=== PATIENT | female | born 1965 | race Caucasian/White ===

== ENCOUNTER 2017-01-27 17:42 | Inpatient (IN) | payer OTHER ==
[~2017-01-27] VITALS: Ht 160 cm; Wt 65.8 kg
[~2017-01-27 17:42] MED LIST: BACTRIM DS 8001 TAB PO; DIFLUCAN150 MG PO; KEFLEX500 MG PO; TRIAMCINOL0.1 %/453 TOP; VIVELLE-DO0.075 MG/2 TD
--- NOTE | 2017-01-27 18:31 | ED GI/GU/ABDOMINAL COMPLAINT ---
History of Present Illness General Chief Complaint: Abdominal Pain/Flank Pain Stated Complaint: L SIDE/ABD PAIN Source: patient Exam Limitations: no limitations Vital Signs & Intake/Output Vital Signs & Intake/Output Vital Signs Date Time Temp Pulse Resp B/P Pulse O2 O2 Flow FiO2 Ox Delivery Rate 02/03 0657 98.8 100 20 140/84 95 Room Air 02/02 2257 98.3 102 20 140/90 97 02/02 1437 97.8 101 20 140/80 96 ED Intake and Output 02/03 0000 02/02 1200 Intake Total 1200 600 Output Total 1025 10 Balance 175 590 Intake, IV 600 600 Intake, Oral 600 Number 0 Bowel Movements Output, 25 10 Drainage Output, Urine 1000 Allergies Coded Allergies: procaine (From NOVOCAIN) (Severe, RAPID HEART RATE 01/27/17) Penicillins (Intermediate, HIVES 01/27/17) bee venom protein (honey bee) (Intermediate, WELTS 01/27/17) codeine (Intermediate, N/V 01/27/17) latex (Intermediate, HIVES 01/27/17) oxycodone (From PERCOCET) (Intermediate, N/V 01/27/17) Triage Note: TRIAGE: PT TO ER C/C L SIDE ABD PAIN, ONSET 03:00, CONSTANT SINCE ONSET, WORSE WITH MOVEMENT OR DEEPER BREATHS. TOOK ALEVE THIS MORNING WITH SLIGHT RELIEF IN PAIN AND GOOD RELIEF OF FEVER. STATES TEMP WAS 103 AT HOME. AFEBRILE AT TRIAGE. HR 130, EKG ORDERED FROM TRIAGE. Triage Nurses Notes Reviewed? yes HPI: Patient is a 51 year old female presents complaining of severe left sided abdominal pain onset yesterday evening. Pain is a sharp pain currently severe, worsens with movement and palpation and lying flat. Fever of 103 at home tympanically overnight, took 2 Aleve with mild improvement of fevers, no improvement of pain. Positive nausea, no vomiting. Last bowel movement was this morning, small and hard. Associated bloating. (RAN VELEZ,CEM) Reconcile Medications Biotin 5,000 MCG TAB.RAPDIS 1 TAB PO DAILY SUPPLEMENT (Reported) Caffeine 200 MG TABLET 1 TAB PO DAILY SUPPLEMENT (Reported) Calcium (Elemental-Fr Calcarb) (Tums Ultra) (Unknown Strength) TAB.CHEW 2 TAB PO DAILY SUPPLEMENT (Reported) Calcium/Magnesium/Zinc (Pjzdrmk-Cissutxbv-Erpu Tab) 1 EACH TABLET 1 TAB PO DAILY SUPPLEMENT (Reported) Estradiol (Vivelle-Dot) 0.075 MG/24 HOUR PATCH.TDSW 1 PATCH TOP 2XW HRT ( Reported) KELP 1 EACH TABLET 1 TAB PO DAILY SUPPLEMENT (Reported) Krill Oil (Unknown Strength) CAPSULE (Unknown Dose) PO DAILY SUPPLEMENT ( Reported) Lactobacillus Acidophilus (Probiotic) 10 BILLION CELL CAPSULE 1 CAP PO DAILY PROBIOTIC (Reported) Loratadine/Pseudoephedrine (Claritin-D 24 Hour Tablet) 10 MG-240 MG TAB.ER.24H 1 TAB PO DAILY ALLERGIES (Reported) Lutein 40 MG CAPSULE 1 CAP PO DAILY SUPPLEMENT (Reported) Magnesium Oxide (Magnesium) 500 MG CAPSULE 1 CAP PO DAILY SUPPLEMENT ( Reported) Multivitamin (Multi-Day Vitamins) 1 EACH TABLET 2 TAB PO DAILY SUPPLEMENT ( Reported) Omeprazole 40 MG CAPSULE. 1 CAP PO DAILY GI (Reported) ? N Is pt currently ? No (MARY COFFMAN PA-C) Past History Travel History Traveled to [place] past 21 day No Medical History Any Pertinent Medical History? see below for history Neurological: NONE EENT: NONE Cardiovascular: NONE Respiratory: NONE Gastrointestinal: NONE Hepatic: NONE Renal: NONE Musculoskeletal: NONE Psychiatric: NONE Endocrine: LUPUS Blood Disorders: NONE Cancer(s): NONE OBGYN NURSE/Reproductive: UTERINE FIBROIDS Surgical History Surgical History: appendectomy, hysterectomy (total), 2 open myomectomies, 2 c- sections, 8 laparoscopic fibroid removal, lap band Psychosocial History Who do you live with Spouse What is your primary language Taiwanese Tobacco Use: Never used ETOH Use: occasional use Illicit Drug Use: denies illicit drug use Family History Hx Contributory? No (CEM MOTA) Review of Systems Review of Systems Constitutional: Reports: see HPI. EENTM: Reports: no symptoms. Respiratory: Reports: no symptoms. Cardiovascular: Reports: no symptoms. GI: Reports: see HPI. Genitourinary: Reports: no symptoms. Musculoskeletal: Reports: no symptoms. Skin: Reports: no symptoms. Neurological/Psychological: Reports: no symptoms. All Other Systems: Reviewed and Negative (MARY COFFMAN PA-C) Physical Exam Physical Exam General Appearance: alert, awake, severe distress Head: atraumatic, normal appearance Eyes: Bilateral: normal appearance, PERRL, EOMI. Ears, Nose, Throat, Mouth: hearing grossly normal, moist mucous membrane Neck: normal inspection, supple, full range of motion Respiratory: normal breath sounds, chest non-tender, no respiratory distress, lungs clear Cardiovascular: regular rate/rhythm Gastrointestinal: soft, guarding (left mid abdomen), tenderness to palpation in the left upper quadrant with no rebound or guarding. No McBurney's point tenderness. Negative Alexander sign. No masses or hernias appreciated. Nondistended Back: normal inspection, normal range of motion Extremities: normal range of motion Neurologic/Psych: no motor/sensory deficits, awake, alert, oriented x 3, normal gait, normal mood/affect Skin: intact, normal color, warm/dry (RAN VELEZ,CEM) Physical Exam Gastrointestinal: normal bowel sounds, soft, no organomegaly, tenderness to palpation in the left upper quadrant with no rebound or guarding. No McBurney's point tenderness. Negative Alexander sign. No masses or hernias appreciated. Nondistended Comments: Well-developed well-nourished person in no acute distress HEENT: Normal EENT exam, head normocephalic, moist mucous membranes Pupils equally round and reactive to light. Pharynx normal. No swelling or edema. Neck: Supple. Full range of motion Back: Normal inspection Cardiovascular: Regular rate and rhythm with no murmurs, rubs, or gallops Respiratory: Chest nontender. No respiratory distress. Breath sounds clear to auscultation bilaterally Abdomen: Soft, nontender nondistended, no appreciable organomegaly. Normal bowel sounds. No ascites Extremity: Normal and equal pulses Neuro: Alert oriented x3, motor sensory normal, cranial nerves II through XII grossly intact. Skin: No appreciable rash on exposed skin, skin is warm and dry. Psych: Mood and affect is normal, memory and judgment is normal. Core Measures ACS in differential dx? Yes Severe Sepsis Present: No Septic Shock Present: No (MEGHNA BRANDON,MARY) Progress Plan of Care: Orders Procedure Date/time Status Bariatric Diet - Stage 2 02/03 L Active PHOSPHORUS 02/03 0600 Active MAGNESIUM 02/03 0600 Active CBC WITHOUT DIFFERENTIAL 02/03 0600 Active BASIC ELECTROLYTES PLUS BUN&CR 02/03 0600 Active Bariatric Diet - Stage 1 02/02 L Complete Device(s) 02/02 0820 Active Diet Message 02/02 UNK Active Current Medications Sig/Melissa Start time Last Medication Dose Stop Time Status Admin Non-Formulary 0 SEE ADMIN CRITERIA 02/02 1900 CAN Medication (NON FORMULARY) Hydromorphone HCl 2 MG Q4P PRN 02/02 1145 AC (Dilaudid) Magnesium Hydroxide 30 ML DAILY NEEDED PRN 02/02 0800 AC (Milk Of Magnesia) Acetaminophen 1,000 MG Q6P PRN 01/31 1600 AC (Ofirmev) Hydromorphone HCl 0.6 MG Q4P PRN 01/31 1600 AC (Dilaudid) Promethazine HCl 12.5 MG Q6P PRN 01/31 1600 AC (Phenergen) 02/03 2344 Laboratory Tests 02/03/17 0645: Sodium Pending, Potassium Pending, Chloride Pending, Carbon Dioxide Pending, Anion Gap Pending, BUN Pending, Creatinine Pending, BUN/Creatinine Ratio Pending , Phosphorus Pending, Magnesium Pending, CBC w Diff Pending, WBC Pending, RBC Pending, Hgb Pending, Hct Pending, MCV Pending, MCH Pending, RDW Pending, Plt Count Pending, MPV Pending, PUBS MCHC Pending 02/02/17 0812: Anion Gap 7, Estimated GFR > 60, BUN/Creatinine Ratio 10.0, Magnesium 1.7 Patient reports mild to moderate improvement of pain after 0.5mg of Dilaudid. Signed out to Mary Coffman PA-C with CT scan pending. (RAN VELEZ,CEM) Initial ED EKG: none (CEM MOTA) Differential Diagnosis: AAA, AMI, appendicitis, biliary colic, bowel obstruction , colon cancer, cholecystitis, diverticulitis, gastritis, hepatitis, hernia, ischemic bowel, inflamm bowel dis, kidney stone, pancreatitis, PID/cervicitis, PUD/GERD, perforated viscous, UTI/pyelo Diagnostic Imaging: Viewed by Me: CT Scan. Discussed w/RAD: CT Scan. Radiology Impression: PATIENT: ALEXYS BORJAS PRESENT AGE: 51 PATIENT ACCOUNT NO: [id number] : 65 LOCATION: [facility] ORDERING PHYSICIAN: CEM VELEZ SERVICE DATE: 01/27/17 EXAM TYPE: CAT - CT ABD & PELVIS W IV CONTRAST EXAMINATION: CT ABDOMEN AND PELVIS WITH CONTRAST CLINICAL INFORMATION: Rule out infection, obstruction, or splenic infarct. Severe left-sided abdominal pain and guarding. COMPARISON: None TECHNIQUE: Multidetector volumetric imaging was performed of the abdomen and pelvis before and after the IV administration of 95 mL of Optiray 350 intravenous contrast. Sagittal and coronal reformatted images were obtained on the technologist's workstation. DLP: 336.07 mGy-cm FINDINGS: There is mild distention of the lower esophagus which has retained fluid. There is questionable mild circumferential wall thickening as well. A lap band is in place. There is abnormal mesenteric inflammatory change around the course of the connecting tubing for the lap band in the left upper quadrant adjacent to the greater curvature of the stomach. No free air or drainable fluid collection is seen. Inflammatory changes extend to the inferior tip of the spleen around the catheter. The stomach is decompressed. The spleen is homogeneous in attenuation. There is mild fatty infiltration adjacent to the falciform ligament in the liver. The liver is otherwise fairly homogeneous in density. There is no biliary ductal dilatation. The gallbladder is normal. The main portal vein opacifies normally but is somewhat prominent, measuring 1.6 cm in diameter. The abdominal aorta is normal in caliber. The osseous structures appear normal with disc space narrowing at L5-S1. The kidneys demonstrate symmetric nephrograms without hydronephrosis. The pancreas and adrenal glands appear normal. There is no retroperitoneal adenopathy. There are no findings of a bowel obstruction. No large bowel wall thickening or diverticular disease is seen. The uterus is collapsed and retroverted. The bladder is incompletely distended with questionable mild wall thickening. IMPRESSION: Moderate inflammatory changes around the connecting tube of the lap band in the left upper quadrant of the abdomen around the greater curvature of the stomach and through the gastrohepatic space which may reflect phlegmon. No drainable fluid collection or abscess. No free air. Questionable mild bladder wall thickening versus incomplete distention; clinically correlate. DICTATED BY: ROBSON JEFFERS MD DATE/TIME DICTATED:01/27/172035 MANAGER FACILITY:[facility] DATE/TIME TRANSCRIBED:01/27/172035 CONFIDENTIAL, DO NOT COPY WITHOUT APPROPRIATE AUTHORIZATION. <Electronically signed in Other Vendor System> SIGNED BY: ROBSON JEFFERS MD 01/27/172049 Hand-Off Endorsed To: MARY COFFMAN PA-C Endorsed Time: 1999 Pending: CT Comments: 01/27/2017 10:15:19 PM: I spoke to Dr. Mead with [place] [facility]. He did in turn speak with Dr. Alexandr Alberto who is suggesting that we speak to the surgical PA to come down for [id number] evaluation. 01/27/2017 10:49:01 PM: Surgical PA was at the patient's bedside for face to face evaluation. (MARY OCFFMAN PA-C) Departure Departure Referrals: GINGER KENYON,JAZMIN Joshua (PCP/Family) Departure Forms: Customer Survey General Discharge Information (CEM MOTA) Departure Disposition: STILL A PATIENT Condition: Stable Clinical Impression Primary Impression: Gastric band erosion Qualifiers: Encounter type: initial encounter Qualified Code: T85.598A - Other mechanical complication of other gastrointestinal prosthetic devices, implants and grafts, initial encounter Admission Note Spoke With: ALEXANDR LAMB MD Documentation of Exam: Documentation of any treatments & extenuating circumstances including Concerns Regarding Discharge (functional status, medication knowledge or non-compliance, living conditions, etc.) that warrant an admission rather than observation: [ This patient is a 51-year-old female who presented to the emergency department today for evaluation of left upper quadrant pain. Possible erosion of previously flat pain. This patient will need further observation and management the emergency department. Transient labs and Repeat CT scan.] OR/GI Note Spoke With: ALEXANDR LAMB MD Transport To: [facility] (MARY COFFMAN PA-C) PA/CONCRETE PUMP OPERATOR HELPER Co-Sign Statement Statement: ED Attending supervision documentation- [] I saw and evaluated the patient. I have also reviewed all the pertinent lab results and diagnostic results. I agree with the findings and the plan of care as documented in the PA's/CONCRETE PUMP OPERATOR HELPER's documentation. [X] I have reviewed the ED Record and agree with the PA's/CONCRETE PUMP OPERATOR HELPER's documentation. [] Additions or exceptions (if any) to the PAs/CONCRETE PUMP OPERATOR HELPER's note and plan are summarized below: [] (ARNOLD KENYON,ROBSON Medina)
[2017-01-27] MEDS ORDERED: VIVELLE-DOT1 EAC4 TOP (18:47)
[2017-01-27] MEDS ORDERED: MULTI-DAY VITA1 EACH PO (18:47)
[2017-01-27] MEDS ORDERED: TUMS ULTRA400 M1 PO (18:48)
[2017-01-27] MEDS ORDERED: KRILL OIL500 MG PO (18:49)
[2017-01-27] MEDS ORDERED: CALCIUM-MAGNES1 EAC5 PO (18:49)
[2017-01-27] MEDS ORDERED: PROBIOTIC1 EACH PO (18:50)
[2017-01-27] MEDS ORDERED: MAGNESIUM500 M2 PO (18:50)
[2017-01-27] MEDS ORDERED: CAFFEINE200 MG PO (18:50)
[2017-01-27] MEDS ORDERED: LUTEIN40 MG PO (18:51)
[2017-01-27] MEDS ORDERED: KELP1 EACH PO (18:51)
[2017-01-27] MEDS ORDERED: BIOTIN5000 MCG PO (18:51)
[2017-01-27] MEDS ORDERED: CLARITIN-D 241 EACH PO (18:52)
[2017-01-27] MEDS ORDERED: OMEPRAZOLE40 M1 PO (18:52)
[2017-01-27 19:02] LABS: ABSOLUTE BASOPHIL COUNT 0 /CUMM (0.0-0.2); ABSOLUTE EOSINOPHIL COUNT 0.1 /CUMM (0.0-0.7); ABSOLUTE GRANULOCYTE CT 8.8 /CUMM (1.4-6.5); ABSOLUTE LYMPH COUNT 1.4 /CUMM (1.2-3.4); ABSOLUTE MONOCYTE COUNT 0.7 /CUMM (0.10-0.60); BASOPHIL % 0.4 % (0.0-2.0); EOSINOPHIL % 0.9 % (0-5); GRANULOCYTE % 79.3 % (42.2-75.2); HEMATOCRIT 36.8 % (37-47); MEAN CORPUSCULAR HGB 26.9 PG (27.0-31.0); MEAN CORPUSCULAR HGB CONC 32.6 G/DL (33.0-37.0); MEAN CORPUSCULAR VOLUME 82.5 FL (81.0-99.0); PLATELET COUNT 243 /CUMM (130-400); RBC DISTRIBUTION WIDTH 14.5 % (11.5-14.5); RED BLOOD CELL CT 4.46 /CUMM (4.20-5.40); WHITE BLOOD CELL COUNT 11.1 /CUMM (4.8-10.8)
--- NOTE | 2017-01-27 20:50 | CT SCAN REPORT ---
EXAMINATION: CT ABDOMEN AND PELVIS WITH CONTRAST CLINICAL INFORMATION: Rule out infection, obstruction, or splenic infarct. Severe left-sided abdominal pain and guarding. COMPARISON: None TECHNIQUE: Multidetector volumetric imaging was performed of the abdomen and pelvis before and after the IV administration of 95 mL of Optiray 350 intravenous contrast. Sagittal and coronal reformatted images were obtained on the technologist's workstation. DLP: 336.07 mGy-cm FINDINGS: There is mild distention of the lower esophagus which has retained fluid. There is questionable mild circumferential wall thickening as well. A lap band is in place. There is abnormal mesenteric inflammatory change around the course of the connecting tubing for the lap band in the left upper quadrant adjacent to the greater curvature of the stomach. No free air or drainable fluid collection is seen. Inflammatory changes extend to the inferior tip of the spleen around the catheter. The stomach is decompressed. The spleen is homogeneous in attenuation. There is mild fatty infiltration adjacent to the falciform ligament in the liver. The liver is otherwise fairly homogeneous in density. There is no biliary ductal dilatation. The gallbladder is normal. The main portal vein opacifies normally but is somewhat prominent, measuring 1.6 cm in diameter. The abdominal aorta is normal in caliber. The osseous structures appear normal with disc space narrowing at L5-S1. The kidneys demonstrate symmetric nephrograms without hydronephrosis. The pancreas and adrenal glands appear normal. There is no retroperitoneal adenopathy. There are no findings of a bowel obstruction. No large bowel wall thickening or diverticular disease is seen. The uterus is collapsed and retroverted. The bladder is incompletely distended with questionable mild wall thickening. IMPRESSION: Moderate inflammatory changes around the connecting tube of the lap band in the left upper quadrant of the abdomen around the greater curvature of the stomach and through the gastrohepatic space which may reflect phlegmon. No drainable fluid collection or abscess. No free air. Questionable mild bladder wall thickening versus incomplete distention; clinically correlate.
--- NOTE | 2017-01-27 23:51 | History & Physical ---
General Information and HPI MD Statement: I have seen and personally examined ALEXYS BORJAS and documented this H&P. The patient is a 51 year old F who presented with a patient stated chief complaint of [abdominal pain]. Source of Information: patient Exam Limitations: no limitations History of Present Illness: This is a 51-year-old female who presents the emergency department this afternoon with severe epigastric and left upper quadrant abdominal pain. Pain started at 3 AM this morning, sudden onset associated with chills and fever, she took her temperature and noted to be 103. She took [id number] antipyretics and temperature improved. She has had intermittent but worsening pain throughout the day today associated with nausea and intermittent chills, she presented to the ER for further evaluation. The pain is not radiating, is not going to left lower quadrant or right lower quadrant not into the back. She is not vomiting. She is able to swallow liquids without difficulty. Patient has a history of lap band surgery done [address] Jeyson Richardson. 2 years after this she had complications when the LAP-BAND slipped and Dr. Richardson had to attempt operated again on her, repositioning the LAP-BAND. According to patient is a large amount of scar tissue surrounding the band and she states that Dr. Richardson said at the time that it was very dangerous to remove the LAP- BAND because he was worried about perforation. She has not had any significant trouble since that surgery, she was last seen approximately 2 years ago by Charlie Marie MD and had an endoscopy at that time which was routine and states it was normal. She states that she has very little to no fluid left in the LAP- BAND and has tolerated food normally without difficulty and had no complications until this episode early this morning. Patient does note that over the past week she has been more constipated than usual requiring Ex-Lax zaqg-glw-gvemwej. She has had bowel movements each day for the last 3 days last bowel movement was this morning. She feels her abdominal area is distended. She was noted to be tachycardic here upon arrival to the ER and received IV fluids and IV pain medication which helped her symptoms significantly. Patient had a CT scan and lab tests here in the ER. Surgery was consulted for further management due to findings on CT scan of inflammation and possible phlegmon around the LAP-BAND. Allergies/Medications Allergies: Coded Allergies: procaine (From NOVOCAIN) (Severe, RAPID HEART RATE 01/27/17) Penicillins (Intermediate, HIVES 01/27/17) bee venom protein (honey bee) (Intermediate, WELTS 01/27/17) codeine (Intermediate, N/V 01/27/17) latex (Intermediate, HIVES 01/27/17) oxycodone (From PERCOCET) (Intermediate, N/V 01/27/17) Home Med list Biotin 5,000 MCG TAB.RAPDIS 1 TAB PO DAILY SUPPLEMENT (Reported) Caffeine 200 MG TABLET 1 TAB PO DAILY SUPPLEMENT (Reported) Calcium (Elemental-Fr Calcarb) (Tums Ultra) (Unknown Strength) TAB.CHEW 2 TAB PO DAILY SUPPLEMENT (Reported) Calcium/Magnesium/Zinc (Lpajxnl-Joqdxjzdj-Cjly Tab) 1 EACH TABLET 1 TAB PO DAILY SUPPLEMENT (Reported) Estradiol (Vivelle-Dot) 0.075 MG/24 HOUR PATCH.TDSW 1 PATCH TOP 2XW HRT ( Reported) KELP 1 EACH TABLET 1 TAB PO DAILY SUPPLEMENT (Reported) Krill Oil (Unknown Strength) CAPSULE (Unknown Dose) PO DAILY SUPPLEMENT ( Reported) Lactobacillus Acidophilus (Probiotic) 10 BILLION CELL CAPSULE 1 CAP PO DAILY PROBIOTIC (Reported) Loratadine/Pseudoephedrine (Claritin-D 24 Hour Tablet) 10 MG-240 MG TAB.ER.24H 1 TAB PO DAILY ALLERGIES (Reported) Lutein 40 MG CAPSULE 1 CAP PO DAILY SUPPLEMENT (Reported) Magnesium Oxide (Magnesium) 500 MG CAPSULE 1 CAP PO DAILY SUPPLEMENT ( Reported) Multivitamin (Multi-Day Vitamins) 1 EACH TABLET 2 TAB PO DAILY SUPPLEMENT ( Reported) Omeprazole 40 MG CAPSULE.DR 1 CAP PO DAILY GI (Reported) Compliance With Home Meds: GOOD Past History Travel History Traveled to [place] past 21 day No Medical History Neurological: NONE EENT: NONE Cardiovascular: NONE Respiratory: NONE Gastrointestinal: NONE Hepatic: NONE Renal: NONE Musculoskeletal: NONE Psychiatric: NONE Endocrine: LUPUS Blood Disorders: NONE Cancer(s): NONE 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 EENTM: Reports: no symptoms. Cardiovascular: Reports: no symptoms. Respiratory: Reports: no symptoms. GI: Reports: no symptoms. Musculoskeletal: Reports: no symptoms. Skin: Reports: no symptoms. Neurological/Psychological: Reports: no symptoms. Hematologic/Endocrine: Reports: no symptoms. Immunologic/Allergic: Reports: no symptoms. All Other Systems: Reviewed and Negative Exam & Diagnostic Data Last 24 Hrs of Vital Signs/I&O Vital Signs Date Time Temp Pulse Resp B/P Pulse O2 O2 Flow FiO2 Ox Delivery Rate 01/28 2208 98.7 100 18 125/76 99 01/27 1904 112 126/75 01/27 1750 98.5 130 20 121/89 99 Room Air Physical Exam General Appearance Alert, Oriented X3, No Acute Distress Skin No Rashes, No Breakdown, No Significant Lesion HEENT Atraumatic, PERRLA, EOMI, mildly dry mucous membranes Neck Supple, No JVD, No thryomegaly, +2 Carotid Pulse wo Bruit Lymphatic Cervical nl Cardiovascular Normal S1, Normal S2, borderline tachycardia, no JVD Lungs Clear to Auscultation, Normal Air Movement Abdomen Soft, softly distended diffusely. Moderate to severe tenderness in the epigastric and left upper quadrant. No lower abdominal pain or tenderness. No peritoneal signs. Bowel sounds are decreased Neurological Normal Speech, Sensation Intact Extremities No Clubbing, No Cyanosis, No Edema, Normal Pulses, No Tenderness/ Swelling Vascular Normal Pulses Last 24 Hrs of Labs/Art: Laboratory Tests 01/27/172218: Urine Color YEL, Urine Clarity CLEAR, Urine pH 6.0, Ur Specific [place] <= 1.005 , Urine Protein NEG, Urine Ketones 40 H, Urine Nitrite NEG, Urine Bilirubin NEG , Urine Urobilinogen 0.2, Ur Leukocyte Esterase NEG, Ur Microscopic EXAM NOT REQUIRED, Urine Hemoglobin NEG, Urine Glucose NEG 01/27/17 213: Lactic Acid Cancelled 01/27/17 183: Direct Bilirubin Cancelled 01/27/17 183: Anion Gap 14, Estimated GFR > 60, BUN/Creatinine Ratio 13.8, Glucose 86, Lactic Acid 0.7, Calcium 9.4, Total Bilirubin 0.5, AST 18, ALT 35, Alkaline Phosphatase 104, Total Protein 6.9, Albumin 4.0, Globulin 2.9, Albumin/Globulin Ratio 1.4, Amylase 63, Lipase 36, CBC w Diff NO MAN DIFF REQ, RBC 4.46, MCV 82.5, MCH 26.9 L, RDW 14.5, MPV 9.0, Gran % 79.3 H, Lymphocytes % 13.0 L, Monocytes % 6.4, Eosinophils % 0.9, Basophils % 0.4, Absolute Granulocytes 8.8 H, Absolute Lymphocytes 1.4, Absolute Monocytes 0.7 H, Absolute Eosinophils 0.1, Absolute Basophils 0, PUBS MCHC 32.6 L Microbiology 01/28 1832 BLOOD: Blood Culture - CAN Cancelled: Cancelled via OE: Error 01/28 1832 BLOOD: Blood Culture - CAN Cancelled: Cancelled via OE: Error Diagnostic Data EKG Results Sinus tachycardia, 130 bpm, suboptimal tracing due to artifact, no acute ST or T -wave changes Other Results PATIENT: ALEXYS BORJAS PRESENT AGE: 51 PATIENT ACCOUNT NO: [id number] : 65 LOCATION: [facility] ORDERING PHYSICIAN: CEM VELEZ SERVICE DATE: 01/27/17 EXAM TYPE: CAT - CT ABD & PELVIS W IV CONTRAST EXAMINATION: CT ABDOMEN AND PELVIS WITH CONTRAST CLINICAL INFORMATION: Rule out infection, obstruction, or splenic infarct. Severe left-sided abdominal pain and guarding. COMPARISON: None TECHNIQUE: Multidetector volumetric imaging was performed of the abdomen and pelvis before and after the IV administration of 95 mL of Optiray 350 intravenous contrast. Sagittal and coronal reformatted images were obtained on the technologist's workstation. DLP: 336.07 mGy-cm FINDINGS: There is mild distention of the lower esophagus which has retained fluid. There is questionable mild circumferential wall thickening as well. A lap band is in place. There is abnormal mesenteric inflammatory change around the course of the connecting tubing for the lap band in the left upper quadrant adjacent to the greater curvature of the stomach. No free air or drainable fluid collection is seen. Inflammatory changes extend to the inferior tip of the spleen around the catheter. The stomach is decompressed. The spleen is homogeneous in attenuation. There is mild fatty infiltration adjacent to the falciform ligament in the liver. The liver is otherwise fairly homogeneous in density. There is no biliary ductal dilatation. The gallbladder is normal. The main portal vein opacifies normally but is somewhat prominent, measuring 1.6 cm in diameter. The abdominal aorta is normal in caliber. The osseous structures appear normal with disc space narrowing at L5-S1. The kidneys demonstrate symmetric nephrograms without hydronephrosis. The pancreas and adrenal glands appear normal. There is no retroperitoneal adenopathy. There are no findings of a bowel obstruction. No large bowel wall thickening or diverticular disease is seen. The uterus is collapsed and retroverted. The bladder is incompletely distended with questionable mild wall thickening. IMPRESSION: Moderate inflammatory changes around the connecting tube of the lap band in the left upper quadrant of the abdomen around the greater curvature of the stomach and through the gastrohepatic space which may reflect phlegmon. No drainable fluid collection or abscess. No free air. Questionable mild bladder wall thickening versus incomplete distention; clinically correlate. DICTATED BY: RBOSON JEFFERS MD DATE/TIME DICTATED:01/27/172035 HAND QUILTER:MAGGIE DATE/TIME TRANSCRIBED:01/27/172035 Assessment/Plan Assessment: 51-year-old female 7 years status post lap band placement and 5 years status post lap and revision presents with acute abdominal pain and complications related to her lap band surgery suggestive of erosion and possible microperforation and infection. -Discussed with Dr. Carranza, admitted to general surgery -Nothing by mouth -Pain medication as needed -IV antiemetics as needed -IV fluids -DVT prophylaxis with Alps, heparin subcutaneous and ad onesimo activity -Unasyn 3 g every 6 for possible infection and perforation -Upper GI series in the morning to evaluate for perforation -CBC in the morning, following White blood cell count -Consider NG tube if patient becomes more distended or starts vomiting -Possible OR tomorrow for lap band removal and repair of erosion or perforation if indicated. As Ranked By This Provider Problem List: 1. Gastric band erosion Qualifiers Encounter type: initial encounter Qualified Code: T85.598A - Other mechanical complication of other gastrointestinal prosthetic devices, implants and grafts, initial encounter 2. Abdominal pain Qualifiers Abdominal location: left upper quadrant Qualified Code: R10.12 - Left upper quadrant pain Core Measures/Miscellaneous Acute Coronary Syndrome ACS Diagnosis: No Cerebrovascular Accident CVA/TIA Diagnosis: No Congestive Heart Failure CHF Diagnosis: No Venous Thromboembolism VTE Risk Factors: Acute medical illness, Age > 40 [facility] prophylaxis d/t: No contraindications No VTE Pharm Prophylaxis d/t: No contraindications VTE Diagnosis: No VTE Type: NONE VTE Confirmed by (Test): NONE Severe Sepsis Severe Sepsis Present: No Septic Shock Septic Shock Present: No Miscellaneous Documentation Attending Case Discussed With: ZAINAB KENYON,BLAYNE Gr Primary Care Physician: JAZMIN MILES MD Patient sees these Specialists bariatrics Level of Patient Care: General Surgical
--- NOTE | 2017-01-28 00:04 | Admission Core Measures ---
Admission Lab Results I reviewed the following labs: Laboratory Tests 01/27 01/27 2219 2132 Chemistry Lactic Acid Cancelled Urines Urine Color (YEL,AMB,STR) YEL Urine Clarity (CLEAR) CLEAR Urine pH (5.0 - 8.0) 6.0 Ur Specific [place] (1.001 - 1.035) <= 1.005 Urine Protein (NEG,<30 MG/DL) NEG Urine Ketones (NEG) 40 H Urine Nitrite (NEG) NEG Urine Bilirubin (NEG) NEG Urine Urobilinogen (0.1 - 1.0 EU/dl) 0.2 Ur Leukocyte Esterase (NEG) NEG Ur Microscopic EXAM NOT REQUIRED Urine Hemoglobin (NEG) NEG Urine Glucose (N MG/DL) NEG 01/27 01/27 1832 1832 Chemistry Sodium (137 - 145 mmol/L) 138 Potassium (3.5 - 5.1 mmol/L) 4.4 Chloride (98 - 107 mmol/L) 98 Carbon Dioxide (22 - 30 mmol/L) 25 Anion Gap (5 - 16) 14 BUN (7 - 17 mg/dL) 11 Creatinine (0.5 - 1.0 mg/dL) 0.8 Estimated GFR (>60 ml/min) > 60 BUN/Creatinine Ratio (7 - 25 %) 13.8 Glucose (65 - 99 mg/dL) 86 Lactic Acid (0.7 - 2.1 mmol/L) 0.7 Calcium (8.4 - 10.2 mg/dL) 9.4 Total Bilirubin (0.2 - 1.3 mg/dL) 0.5 Direct Bilirubin Cancelled AST (14 - 36 U/L) 18 ALT (9 - 52 U/L) 35 Alkaline Phosphatase (<127 U/L) 104 Total Protein (6.3 - 8.2 g/dL) 6.9 Albumin (3.5 - 5.0 g/dL) 4.0 Globulin (1.9 - 4.2 gm/dL) 2.9 Albumin/Globulin Ratio (1.1 - 2.2 %) 1.4 Amylase (30 - 110 U/L) 63 Lipase (23 - 300 U/L) 36 Hematology CBC w Diff NO MAN DIFF REQ WBC (4.8 - 10.8 /CUMM) 11.1 H RBC (4.20 - 5.40 /CUMM) 4.46 Hgb (12.0 - 16.0 G/DL) 12.0 Hct (37 - 47 %) 36.8 L MCV (81.0 - 99.0 FL) 82.5 MCH (27.0 - 31.0 PG) 26.9 L RDW (11.5 - 14.5 %) 14.5 Plt Count (130 - 400 /CUMM) 243 MPV (7.4 - 10.4 FL) 9.0 Gran % (42.2 - 75.2 %) 79.3 H Lymphocytes % (20.5 - 51.1 %) 13.0 L Monocytes % (1.7 - 9.3 %) 6.4 Eosinophils % (0 - 5 %) 0.9 Basophils % (0.0 - 2.0 %) 0.4 Absolute Granulocytes (1.4 - 6.5 /CUMM) 8.8 H Absolute Lymphocytes (1.2 - 3.4 /CUMM) 1.4 Absolute Monocytes (0.10 - 0.60 /CUMM) 0.7 H Absolute Eosinophils (0.0 - 0.7 /CUMM) 0.1 Absolute Basophils (0.0 - 0.2 /CUMM) 0 PUBS MCHC (33.0 - 37.0 G/DL) 32.6 L Admission Meds I reviewed the following Meds: Current Medications Sig/Melissa Start time Last Medication Dose Stop Time Status Admin Acetaminophen 1,000 MG Q6P PRN 01/27 2345 UNVr (Ofirmev) Ampicillin Sodium/ 3,000 MG Q6 01/28 0015 UNVr Sulbactam Sodium (Unasyn) Sodium Chloride 100 ML (Normal Saline 0.9%) Dextrose/Water 1,000 ML .Q6H40M 01/27 2345 AC (D5W 1000) Hydromorphone HCl 0.6 MG Q4P PRN 01/27 2345 UNVr (Dilaudid) Hydromorphone HCl 1 MG Q4P PRN 01/27 2345 UNVr (Dilaudid) Loratadine 10 MG DAILY 01/28 1000 UNVr (Claritin) Ondansetron HCl 4 MG Q6P PRN 01/27 2345 UNVr (Zofran) Pantoprazole Sodium 40 MG DAILY 01/28 1000 UNVr (Protonix) Promethazine HCl 12.5 MG Q6P PRN 01/27 2345 UNVr (Phenergen) 02/03 2344 Acute Coronary Syndrome Inclusion Criteria ACS Diagnosis No Inpatient Core Measures LDL Reminder: If No, please order W/I first 24hr of stay Congestive Heart Failure Inclusion Criteria CHF Diagnosis No Cerebrovascular accident Inclusion Criteria CVA/TIA Diagnosis No Inpatient Core Measures Bedside Swallow Eval Reminder: If BSE failed, place ST order Antithrombotic Reminder: Order Antithrombotic Medication by end of day 2 Antithrombotic Reminder: Document Reason Antithrombotic Not ordered by end of day 2 AFIB/Flutter Reminder: If Present, add to problem list AFIB/Flutter Reminder: Order Anticoag Medication for pts with AFIB/Flutter Atherosclerosis Reminder: If Present, add to problem list LDL Reminder: If No, please order W/I first 24hr of stay PT Order Reminder: If No, please order Venous thromboembolism Inpatient Core Measures VTE Risk Factors: Acute medical illness, Age > 40 [facility] prophylaxis d/t No contraindications No VTE Pharm Prophylaxis d/t No contraindications Inclusion Criteria - Per Current guidelines, there needs to be overlap - treatment for the first 5 days of Warfarin therapy. - Parenteral Anticoagulation (IV or SC) needs to be - given along with Warfarin therapy. VTE Diagnosis No VTE Type NONE VTE Confirmed by (Test) NONE Problem List As ranked by this Provider includes Assessment & Plan 1. Abdominal pain 2. Gastric band erosion HOME MEDS Home Med List Biotin 5,000 MCG TAB.RAPDIS 1 TAB PO DAILY SUPPLEMENT (Reported) Caffeine 200 MG TABLET 1 TAB PO DAILY SUPPLEMENT (Reported) Calcium (Elemental-Fr Calcarb) (Tums Ultra) (Unknown Strength) TAB.CHEW 2 TAB PO DAILY SUPPLEMENT (Reported) Calcium/Magnesium/Zinc (Kiycvqr-Lcrfpczed-Yoeb Tab) 1 EACH TABLET 1 TAB PO DAILY SUPPLEMENT (Reported) Estradiol (Vivelle-Dot) 0.075 MG/24 HOUR PATCH.TDSW 1 PATCH TOP 2XW HRT ( Reported) KELP 1 EACH TABLET 1 TAB PO DAILY SUPPLEMENT (Reported) Krill Oil (Unknown Strength) CAPSULE (Unknown Dose) PO DAILY SUPPLEMENT ( Reported) Lactobacillus Acidophilus (Probiotic) 10 BILLION CELL CAPSULE 1 CAP PO DAILY PROBIOTIC (Reported) Loratadine/Pseudoephedrine (Claritin-D 24 Hour Tablet) 10 MG-240 MG TAB.ER.24H 1 TAB PO DAILY ALLERGIES (Reported) Lutein 40 MG CAPSULE 1 CAP PO DAILY SUPPLEMENT (Reported) Magnesium Oxide (Magnesium) 500 MG CAPSULE 1 CAP PO DAILY SUPPLEMENT ( Reported) Multivitamin (Multi-Day Vitamins) 1 EACH TABLET 2 TAB PO DAILY SUPPLEMENT ( Reported) Omeprazole 40 MG CAPSULE.DR 1 CAP PO DAILY GI (Reported)
[2017-01-28 00:49] VITALS: BP 134/80
[2017-01-28 06:43] VITALS: BP 128/80
--- NOTE | 2017-01-28 07:43 | PN- Bariatrics ---
Subjective Subjective: Reports left upper abdominal pain is better after pain medication. When the pain medication wears off, she admits to "stabbing" pain. No nausea. Denies chills/ sweats. Passing flatus. Admits to some bloating. Understands need for upper gi study today. Objective Vital Signs and I&Os Vital Signs Date Time Temp Pulse Resp B/P Pulse O2 O2 Flow FiO2 Ox Delivery Rate 01/28 0643 98.6 98 20 128/80 95 Room Air 01/28 0049 98.3 103 20 134/80 97 Room Air 01/27 2208 98.7 100 18 125/76 99 01/27 1904 112 126/75 01/27 1750 98.5 130 20 121/89 99 Room Air Intake & Output 01/28 0800 01/28 0000 01/27 1600 01/27 0800 01/27 0000 01/26 1600 Intake Total 900 1000 Output Total Balance 900 1000 Intake, IV 900 1000 Patient 145 lb 148 lb Weight Physical Exam: General - alert & oriented x 3. comfortable. no acute distress. Lungs - clear bilaterally. no w/r/r. Cardiac - s1s2. reg. Abdomen - soft. some left upper quadrant tenderness and guarding. lap band port site nontender. Extremities - warm bilaterally. no c/c/e. calves soft and nontender b/l. Assessment/Plan Assessment/Plan This 51-year-old female, who is 7 years s/p lap band placement and 5 years status post lap band revision, presents with acute abdominal pain r/o lap band erosion and possible microperforation currently npo / ivf awaiting upper gi study pain control as ordered protonix - gi ppx hep sc - dvt ppx f/u labs oob/ambulation possible OR if evidence lap band erosion / perforation will d/w Core Measures/Miscellaneous Venous Thromboembolism VTE Risk Factors: Age > 40 VTE Contraindications: No Contraindications VTE Diagnosis: No VTE Type: NONE VTE Confirmed by (Test): NONE Beta Obie Is Beta Obie a Home Med? No Antibiotics Is Patient on Antibiotics? Yes If Yes: infection
[2017-01-28 09:26] LABS: ABSOLUTE BASOPHIL COUNT 0 /CUMM (0.0-0.2); ABSOLUTE EOSINOPHIL COUNT 0.1 /CUMM (0.0-0.7); ABSOLUTE GRANULOCYTE CT 6.8 /CUMM (1.4-6.5); ABSOLUTE LYMPH COUNT 1.6 /CUMM (1.2-3.4); ABSOLUTE MONOCYTE COUNT 0.7 /CUMM (0.10-0.60); BASOPHIL % 0.5 % (0.0-2.0); EOSINOPHIL % 1.6 % (0-5); GRANULOCYTE % 72.8 % (42.2-75.2); HEMATOCRIT 32.4 % (37-47); MEAN CORPUSCULAR HGB 27.3 PG (27.0-31.0); MEAN CORPUSCULAR VOLUME 82.7 FL (81.0-99.0); MEAN PLATELET VOLUME 9.1 FL (7.4-10.4); PLATELET COUNT 203 /CUMM (130-400); RBC DISTRIBUTION WIDTH 14.4 % (11.5-14.5); RED BLOOD CELL CT 3.92 /CUMM (4.20-5.40); WHITE BLOOD CELL COUNT 9.3 /CUMM (4.8-10.8)
[2017-01-28 14:15] VITALS: BP 120/80
--- NOTE | 2017-01-28 15:16 | RADIOLOGY REPORT ---
EXAMINATION: FLUOROSCOPY UPPER GI WITH GASTROGRAFIN CLINICAL INFORMATION: Sudden onset of epigastric pain and fever. Evaluate for leak at lap band. COMPARISON: CT scan of the abdomen and pelvis dated 01/27/2017. TECHNIQUE: A limited Gastrografin upper GI study was performed using 60 ml of Gastroview with the patient in the upright, semiupright, and various supine positions. Multiple spot films were acquired. FINDINGS: The preliminary cone tender view of the abdomen demonstrate a lap band in place at an approximately 45 degree angle from the horizontal. The attached gastric tubing appears intact and the port is seen projected to the right of the L2 vertebral body. No free air is demonstrated. No abnormal bowel distention seen. Esophageal distensibility is normal. Esophageal motility, however, is abnormal. Premature breakup of the primary wave of peristalsis is seen and there is relative hypotonia of the mid and distal esophagus, leading to significant delay in esophageal emptying. The GE junction is located below the level of the diaphragm. The remnant gastric pouch is normal with no abnormal distention or contrast leak seen. There is prompt emptying of contrast into the remaining stomach. Due to small volume of contrast administered, focal gastric distensibility is not assessed. However, the mucosal pattern appears normal and no definite gastric mass or ulceration is demonstrated. Duodenal bulb and C-sweep are partially opacified and are grossly unremarkable. FLUOROSCOPY TIME: 2.1 minutes. IMPRESSION: 1. Gastric lap band is in satisfactory position with no evidence of gastric leak or undue restriction seen. 2. Flaccid mid and distal esophagus with significant delay in esophageal emptying. This predisposes the patient to retrograde aspiration. Findings discussed with ROSIE Quinn, 01/28/2017, 3:00 PM.
[2017-01-28 22:49] VITALS: BP 110/60
[2017-01-29 01:32] VITALS: BP 118/70
[2017-01-29 06:50] VITALS: BP 108/60
--- NOTE | 2017-01-29 07:19 | PN- Bariatrics ---
Subjective Subjective: Reports severe headache overnight, which was more bothersome than her abdominal pain around 3 am. She was upset that no one came to see her at this time. She felt better after falling asleep. She reports feeling "swollen". Tolerating some clears. No nausea. Not passing much gas, but she states she typically doesn't pass much gas at baseline. +bm yesterday. +chills. Objective Vital Signs and I&Os Vital Signs Date Time Temp Pulse Resp B/P Pulse O2 O2 Flow FiO2 Ox Delivery Rate 01/29 0650 98.7 98 20 108/60 94 Room Air 01/29 0132 99.8 102 20 118/70 96 Room Air 01/29 0005 99.6 01/28 2249 97.4 98 20 110/60 99 Room Air 01/28 1415 98.1 77 20 120/80 98 Intake & Output 01/29 0800 01/29 0000 01/28 1600 01/28 0800 01/28 0000 01/27 1600 Intake Total 500 815 437 1195 Output Total Balance 500 452 392 9176 Intake, IV 173 481 2035 Intake, Oral 500 Patient 145 lb 148 lb Weight Physical Exam: General - alert & oriented x 3. uncomfortable. no acute distress. Lungs - clear bilaterally. no w/r/r. Cardiac - s1s2. reg. slightly tachy 100s Abdomen - seems more distended. bowel sounds appreciated. more left sided tenderness today. Extremities - warm bilaterally. no c/c/e. calves soft and nontender b/l. Assessment/Plan Assessment/Plan This 51-year-old female, who is 7 years s/p lap band placement and 5 years s/p lap band revision, presents with acute abdominal pain r/o lap band erosion currently tolerating clears no leak by upper gi yesterday reports pain and distension worse 2 bottles of gastrograffin per f/u xray this afternoon GI consult called f/u labs iv unasyn for possible intra-abdominal process hep sc - dvt ppx protonix - gi ppx Op note from in chart patient seen & examined with Core Measures/Miscellaneous Venous Thromboembolism VTE Risk Factors: Age > 40 VTE Contraindications: No Contraindications VTE Diagnosis: No VTE Type: NONE VTE Confirmed by (Test): NONE Beta Obie Is Beta Obie a Home Med? No Antibiotics Is Patient on Antibiotics? Yes If Yes: infection
[2017-01-29 08:25] LABS: ABSOLUTE BASOPHIL COUNT 0 /CUMM (0.0-0.2); ABSOLUTE EOSINOPHIL COUNT 0.2 /CUMM (0.0-0.7); ABSOLUTE GRANULOCYTE CT 6.6 /CUMM (1.4-6.5); ABSOLUTE LYMPH COUNT 1.1 /CUMM (1.2-3.4); ABSOLUTE MONOCYTE COUNT 0.4 /CUMM (0.10-0.60); BASOPHIL % 0.4 % (0.0-2.0); EOSINOPHIL % 2.1 % (0-5); GRANULOCYTE % 79.1 % (42.2-75.2); MEAN CORPUSCULAR HGB 27.5 PG (27.0-31.0); MEAN CORPUSCULAR HGB CONC 33.4 G/DL (33.0-37.0); MEAN CORPUSCULAR VOLUME 82.4 FL (81.0-99.0); PLATELET COUNT 232 /CUMM (130-400); RBC DISTRIBUTION WIDTH 14.1 % (11.5-14.5); RED BLOOD CELL CT 3.88 /CUMM (4.20-5.40); WHITE BLOOD CELL COUNT 8.4 /CUMM (4.8-10.8)
[2017-01-29 13:57] VITALS: BP 112/70
--- NOTE | 2017-01-29 14:41 | Cons- Gastroenterology ---
General Information and HPI Consulting Request Date of Consult: 01/29/17 Requested By: ZAINAB KENYON,BLAYNE Gr Reason for Consult: abdominal pain in a pt with a history of a lap band placed 7 years ago and a revision [address] scan. Source of Information: patient, old records Exam Limitations: no limitations History of Present Illness: Ms. Castellano is a 51-year-old female with a history of a lap band placed 7 years ago status post lap band revision 5 years ago who presented to yesterday with complaints of left lower quadrant abdominal pain that began a few days before admission. She reports that she awoke at 3:00 am on Thursday morning with left lower quadrant stabbing pain which was severe and was associated with diaphoresis and chills and a reported fever of 103 Fahrenheit for which she took Tylenol with resolution of the fever. The pain stayed in her left lower quadrant and did not radiate to her back or chest. She has had some nausea, but she has not had any significant vomiting. She denies having similar symptoms like this in the past. She also reports that the symptoms she is having now are different then when she required her lap band to be revised. She also complains of visible bloating. She has been having normal bowel movements except for one episode of constipation over the weekend for which she took an Ex-Lax with resolution. She has been without any significant bright blood per rectum, melena, diarrhea. On admission she had a CAT scan which showed some mesenteric inflammation around the connecting tube of her lap band for which she was admitted and started on IV Unasyn and since starting the antibiotics she reports improvement in her symptoms. Allergies/Medications Allergies: Coded Allergies: procaine (From NOVOCAIN) (Severe, RAPID HEART RATE 01/27/17) Penicillins (Intermediate, HIVES 01/27/17) bee venom protein (honey bee) (Intermediate, WELTS 01/27/17) codeine (Intermediate, N/V 01/27/17) latex (Intermediate, HIVES 01/27/17) oxycodone (From PERCOCET) (Intermediate, N/V 01/27/17) Home Med List: Biotin 5,000 MCG TAB.RAPDIS 1 TAB PO DAILY SUPPLEMENT (Reported) Caffeine 200 MG TABLET 1 TAB PO DAILY SUPPLEMENT (Reported) Calcium (Elemental-Fr Calcarb) (Tums Ultra) (Unknown Strength) TAB.CHEW 2 TAB PO DAILY SUPPLEMENT (Reported) Calcium/Magnesium/Zinc (Eieafoi-Oyruyefjr-Ydnu Tab) 1 EACH TABLET 1 TAB PO DAILY SUPPLEMENT (Reported) Estradiol (Vivelle-Dot) 0.075 MG/24 HOUR PATCH.TDSW 1 PATCH TOP 2XW HRT ( Reported) KELP 1 EACH TABLET 1 TAB PO DAILY SUPPLEMENT (Reported) Krill Oil (Unknown Strength) CAPSULE (Unknown Dose) PO DAILY SUPPLEMENT ( Reported) Lactobacillus Acidophilus (Probiotic) 10 BILLION CELL CAPSULE 1 CAP PO DAILY PROBIOTIC (Reported) Loratadine/Pseudoephedrine (Claritin-D 24 Hour Tablet) 10 MG-240 MG TAB.ER.24H 1 TAB PO DAILY ALLERGIES (Reported) Lutein 40 MG CAPSULE 1 CAP PO DAILY SUPPLEMENT (Reported) Magnesium Oxide (Magnesium) 500 MG CAPSULE 1 CAP PO DAILY SUPPLEMENT ( Reported) Multivitamin (Multi-Day Vitamins) 1 EACH TABLET 2 TAB PO DAILY SUPPLEMENT ( Reported) Omeprazole 40 MG CAPSULE. 1 CAP PO DAILY GI (Reported) Current Medications: Current Medications Sig/Melissa Start time Last Medication Dose Route Stop Time Status Admin Acetaminophen 1,000 MG Q6P PRN 01/27 234 AC 01/28 IV 1400 Ampicillin Sodium/ 3,000 MG Q6 01/28 0015 AC 01/29 Sulbactam Sodium IV 1159 Sodium Chloride 100 ML Dextrose/Water 1,000 ML .Q6H40M 01/27 234 DC 01/28 IV 1131 Heparin Sodium 5,000 UNIT Q8 01/28 1400 AC 01/29 (Porcine) SC 1321 Hydromorphone HCl 0.6 MG Q4P PRN 01/27 2345 AC 01/28 IV 0050 Hydromorphone HCl 1 MG Q4P PRN 01/27 2345 AC 01/29 IV 1105 Ketorolac 30 MG Q6-PRN PRN 01/28 1730 AC 01/29 Tromethamine IV 0838 Loratadine 10 MG DAILY 01/28 1000 AC 01/29 PO 0838 Ondansetron HCl 4 MG .STK-MED ONE 01/29 0105 DC IM 01/29 0106 Ondansetron HCl 4 MG .STK-MED ONE 01/28 1736 DC IM 01/28 1737 Ondansetron HCl 4 MG Q6P PRN 01/27 234 AC 04/13 IV 0118 Pantoprazole Sodium 40 MG DAILY 01/28 1000 AC 01/29 IV 0837 Promethazine HCl 12.5 MG Q6P PRN 01/27 2345 AC IV 02/03 2344 Past History Travel History Traveled to [place] past 21 day No Medical History Blood Transfusion Hx: No Neurological: NONE EENT: NONE Cardiovascular: NONE Respiratory: NONE Gastrointestinal: NONE Hepatic: NONE Renal: NONE Musculoskeletal: NONE Psychiatric: NONE Endocrine: LUPUS Blood Disorders: NONE Cancer(s): NONE 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 Home Smoking Status: Former Smoker ETOH Use: occasional use Illicit Drug Use: denies illicit drug use Review of Systems Review of Systems Constitutional: Reports: chills, diaphoresis, fever, malaise. Denies: weakness, unexplained weight loss. EENTM: Denies: no symptoms. Cardiovascular: Denies: chest pain, edema. Respiratory: Denies: no symptoms. GI: Reports: see HPI. Genitourinary: Denies: no symptoms. Musculoskeletal: Denies: no symptoms. Skin: Denies: no symptoms. Neurological/Psychological: Denies: no symptoms. Hematologic/Endocrine: Denies: no symptoms. Immunologic/Allergic: Denies: no symptoms. All Other Systems: Reviewed and Negative Exam & Diagnostic Data Vital Signs and I&O Vital Signs Date Time Temp Pulse Resp B/P Pulse O2 O2 Flow FiO2 Ox Delivery Rate 01/29 1357 98.6 100 18 112/70 94 Room Air 01/29 0650 98.7 98 20 108/60 94 Room Air 01/29 0132 99.8 102 20 118/70 96 Room Air 01/29 0005 99.6 01/28 2249 97.4 98 20 110/60 99 Room Air Intake & Output 01/29 1600 01/29 0400 01/28 1600 01/28 0400 01/27 1600 01/27 0400 Intake Total 198 853 6629 1000 Output Total Balance 498 741 5348 1000 Intake, IV 140 1450 1000 Intake, Oral 700 500 Number 5 Bowel Movements Patient 145 lb Weight Physical Exam General Appearance: well developed/nourished, no apparent distress, alert, comfortable Head: atraumatic, normal appearance Eyes: Bilateral: normal appearance. Ears, Nose, Throat: normal pharynx, normal ENT inspection Neck: normal inspection, supple, full range of motion Respiratory: normal breath sounds, chest non-tender Cardiovascular: regular rate/rhythm Gastrointestinal: normal bowel sounds, soft, tenderness Rectal: deferred Back: normal inspection, normal range of motion Extremities: normal inspection, normal capillary refill Skin: intact, normal color Results Pertinent Lab Results: Laboratory Tests 01/29 01/28 0635 0730 Chemistry Sodium (137 - 145 mmol/L) 135 L Potassium (3.5 - 5.1 mmol/L) 4.0 Chloride (98 - 107 mmol/L) 99 Carbon Dioxide (22 - 30 mmol/L) 26 Anion Gap (5 - 16) 10 BUN (7 - 17 mg/dL) 8 Creatinine (0.5 - 1.0 mg/dL) 0.7 Estimated GFR (>60 ml/min) > 60 BUN/Creatinine Ratio (7 - 25 %) 11.4 Hematology CBC w Diff NO MAN DIFF REQ NO MAN DIFF REQ WBC (4.8 - 10.8 /CUMM) 8.4 9.3 RBC (4.20 - 5.40 /CUMM) 3.88 L 3.92 L Hgb (12.0 - 16.0 G/DL) 10.7 L 10.7 L Hct (37 - 47 %) 32.0 L 32.4 L MCV (81.0 - 99.0 FL) 82.4 82.7 MCH (27.0 - 31.0 PG) 27.5 27.3 RDW (11.5 - 14.5 %) 14.1 14.4 Plt Count (130 - 400 /CUMM) 232 203 MPV (7.4 - 10.4 FL) 9.0 9.1 Gran % (42.2 - 75.2 %) 79.1 H 72.8 Lymphocytes % (20.5 - 51.1 %) 13.1 L 17.2 L Monocytes % (1.7 - 9.3 %) 5.3 7.9 Eosinophils % (0 - 5 %) 2.1 1.6 Basophils % (0.0 - 2.0 %) 0.4 0.5 Absolute Granulocytes (1.4 - 6.5 /CUMM) 6.6 H 6.8 H Absolute Lymphocytes (1.2 - 3.4 /CUMM) 1.1 L 1.6 Absolute Monocytes (0.10 - 0.60 /CUMM) 0.4 0.7 H Absolute Eosinophils (0.0 - 0.7 /CUMM) 0.2 0.1 Absolute Basophils (0.0 - 0.2 /CUMM) 0 0 PUBS MCHC (33.0 - 37.0 G/DL) 33.4 33.0 01/27 01/27 2219 2132 Chemistry Lactic Acid Cancelled Urines Urine Color (YEL,AMB,STR) YEL Urine Clarity (CLEAR) CLEAR Urine pH (5.0 - 8.0) 6.0 Ur Specific [place] (1.001 - 1.035) <= 1.005 Urine Protein (NEG,<30 MG/DL) NEG Urine Ketones (NEG) 40 H Urine Nitrite (NEG) NEG Urine Bilirubin (NEG) NEG Urine Urobilinogen (0.1 - 1.0 EU/dl) 0.2 Ur Leukocyte Esterase (NEG) NEG Ur Microscopic EXAM NOT REQUIRED Urine Hemoglobin (NEG) NEG Urine Glucose (N MG/DL) NEG 01/27 01/27 1832 1832 Chemistry Sodium (137 - 145 mmol/L) 138 Potassium (3.5 - 5.1 mmol/L) 4.4 Chloride (98 - 107 mmol/L) 98 Carbon Dioxide (22 - 30 mmol/L) 25 Anion Gap (5 - 16) 14 BUN (7 - 17 mg/dL) 11 Creatinine (0.5 - 1.0 mg/dL) 0.8 Estimated GFR (>60 ml/min) > 60 BUN/Creatinine Ratio (7 - 25 %) 13.8 Glucose (65 - 99 mg/dL) 86 Lactic Acid (0.7 - 2.1 mmol/L) 0.7 Calcium (8.4 - 10.2 mg/dL) 9.4 Total Bilirubin (0.2 - 1.3 mg/dL) 0.5 Direct Bilirubin Cancelled AST (14 - 36 U/L) 18 ALT (9 - 52 U/L) 35 Alkaline Phosphatase (<127 U/L) 104 Total Protein (6.3 - 8.2 g/dL) 6.9 Albumin (3.5 - 5.0 g/dL) 4.0 Globulin (1.9 - 4.2 gm/dL) 2.9 Albumin/Globulin Ratio (1.1 - 2.2 %) 1.4 Amylase (30 - 110 U/L) 63 Lipase (23 - 300 U/L) 36 Hematology CBC w Diff NO MAN DIFF REQ WBC (4.8 - 10.8 /CUMM) 11.1 H RBC (4.20 - 5.40 /CUMM) 4.46 Hgb (12.0 - 16.0 G/DL) 12.0 Hct (37 - 47 %) 36.8 L MCV (81.0 - 99.0 FL) 82.5 MCH (27.0 - 31.0 PG) 26.9 L RDW (11.5 - 14.5 %) 14.5 Plt Count (130 - 400 /CUMM) 243 MPV (7.4 - 10.4 FL) 9.0 Gran % (42.2 - 75.2 %) 79.3 H Lymphocytes % (20.5 - 51.1 %) 13.0 L Monocytes % (1.7 - 9.3 %) 6.4 Eosinophils % (0 - 5 %) 0.9 Basophils % (0.0 - 2.0 %) 0.4 Absolute Granulocytes (1.4 - 6.5 /CUMM) 8.8 H Absolute Lymphocytes (1.2 - 3.4 /CUMM) 1.4 Absolute Monocytes (0.10 - 0.60 /CUMM) 0.7 H Absolute Eosinophils (0.0 - 0.7 /CUMM) 0.1 Absolute Basophils (0.0 - 0.2 /CUMM) 0 PUBS MCHC (33.0 - 37.0 G/DL) 32.6 L Imaging/Other Studies: EXAM TYPE: RAD - XRY-UPPER GI SERIES EXAMINATION: FLUOROSCOPY UPPER GI WITH GASTROGRAFIN CLINICAL INFORMATION: Sudden onset of epigastric pain and fever. Evaluate for leak at lap band. COMPARISON: CT scan of the abdomen and pelvis dated 01/27/2017. TECHNIQUE: A limited Gastrografin upper GI study was performed using 60 ml of Gastroview with the patient in the upright, semiupright, and various supine positions. Multiple spot films were acquired. FINDINGS: The preliminary rn advice view of the abdomen demonstrate a lap band in place at an approximately 45 degree angle from the horizontal. The attached gastric tubing appears intact and the port is seen projected to the right of the L2 vertebral body. No free air is demonstrated. No abnormal bowel distention seen. Esophageal distensibility is normal. Esophageal motility, however, is abnormal. Premature breakup of the primary wave of peristalsis is seen and there is relative hypotonia of the mid and distal esophagus, leading to significant delay in esophageal emptying. The GE junction is located below the level of the diaphragm. The remnant gastric pouch is normal with no abnormal distention or contrast leak seen. There is prompt emptying of contrast into the remaining stomach. Due to small volume of contrast administered, focal gastric distensibility is not assessed. However, the mucosal pattern appears normal and no definite gastric mass or ulceration is demonstrated. Duodenal bulb and C-sweep are partially opacified and are grossly unremarkable. FLUOROSCOPY TIME: 2.1 minutes. IMPRESSION: 1. Gastric lap band is in satisfactory position with no evidence of gastric leak or undue restriction seen. 2. Flaccid mid and distal esophagus with significant delay in esophageal emptying. This predisposes the patient to retrograde aspiration. ct scan: EXAM TYPE: CAT - CT ABD & PELVIS W IV CONTRAST EXAMINATION: CT ABDOMEN AND PELVIS WITH CONTRAST CLINICAL INFORMATION: Rule out infection, obstruction, or splenic infarct. Severe left-sided abdominal pain and guarding. COMPARISON: None TECHNIQUE: Multidetector volumetric imaging was performed of the abdomen and pelvis before and after the IV administration of 95 mL of Optiray 350 intravenous contrast. Sagittal and coronal reformatted images were obtained on the technologist's workstation. DLP: 336.07 mGy-cm FINDINGS: There is mild distention of the lower esophagus which has retained fluid. There is questionable mild circumferential wall thickening as well. A lap band is in place. There is abnormal mesenteric inflammatory change around the course of the connecting tubing for the lap band in the left upper quadrant adjacent to the greater curvature of the stomach. No free air or drainable fluid collection is seen. Inflammatory changes extend to the inferior tip of the spleen around the catheter. The stomach is decompressed. The spleen is homogeneous in attenuation. There is mild fatty infiltration adjacent to the falciform ligament in the liver. The liver is otherwise fairly homogeneous in density. There is no biliary ductal dilatation. The gallbladder is normal. The main portal vein opacifies normally but is somewhat prominent, measuring 1.6 cm in diameter. The abdominal aorta is normal in caliber. The osseous structures appear normal with disc space narrowing at L5-S1. The kidneys demonstrate symmetric nephrograms without hydronephrosis. The pancreas and adrenal glands appear normal. There is no retroperitoneal adenopathy. There are no findings of a bowel obstruction. No large bowel wall thickening or diverticular disease is seen. The uterus is collapsed and retroverted. The bladder is incompletely distended with questionable mild wall thickening. IMPRESSION: Moderate inflammatory changes around the connecting tube of the lap band in the left upper quadrant of the abdomen around the greater curvature of the stomach and through the gastrohepatic space which may reflect phlegmon. No drainable fluid collection or abscess. No free air. Questionable mild bladder wall thickening versus incomplete distention; clinically correlate. Assessment/Plan Assessment/Recommendations: Assessment: Ms. Castellano is a 51 year old female s/p lap band placement and subsequent revision 7 and 5 years ago respectively who presented to yesterday with several days of left-sided abdominal pain of uncertain etiology, but considering the CAT scan findings and her improvement with antibiotics I suspect she may have developed an infection related to the port/ connecting tube of her lap band. It is possible she may have developed a lap band erosion or perhaps even a microperforation, but gastrogafin imaging has not shown any evidence of extravasation to support this and her ct scan also did not show any free air or a drainable fluid collection. While it may be reasonable at some point to perform a diagnostic EGD to assess for a lap band erosion I am hesitant to do this if she just had a microperforation and I will discuss this further with surgery. Of note, as she has also had some recent constipation it is possible that some of her symptoms may be secondary to this and bowel spasm, but this wouldn't explain the ct scan findings. Recommendations: 1. Follow up repeat KUB from today to assess for any extravasation of contrast 2. Continue IV unasyn for now 3. If KUB is negative for extravasation of contrast will consider performing a diagnostic EGD tomorrow to assess for a lap band erosion if no objection from surgery 4. Diet as per surgical team, but would keep NPO after midnight for a possible diagnostic EGD tomorrow 5. She should have an outpatient colonoscopy 6. Use miralax as needed for constipation 7. Analgesia as needed and consider using antispasmodic medications should she have any lower abdominal cramping. I will continue to follow this patient and make further recommendations based on her clinical course and results of repeat imaging and the diagnostic upper endoscopy if it is performed. Problem List: 1. Abdominal pain 2. Gastric band erosion Copies To: GINGER KENYON,JAZMIN Joshua; ZAINAB KENYON,BLAYNE Mcguire. Consult Acknowledgment - Thank you for your consult request.
--- NOTE | 2017-01-29 17:07 | RADIOLOGY REPORT ---
EXAMINATION: XR ABDOMEN MULTIPLE VIEWS CLINICAL INFORMATION: Abdominal distention. COMPARISON: None TECHNIQUE: Supine and upright frontal views of the abdomen and pelvis, a total of 3 images. FINDINGS: There is a gastric Lap-Band identified which appears in good position. The hardware appears intact. There is radiopaque contrast identified within the stomach as well as within the large bowel, likely from a barium upper GI study done yesterday. A few small air-fluid levels are noted within the large bowel. The oral contrast is seen all the way to the rectum. No free intraperitoneal air identified. IMPRESSION: 1. No radiographic evidence of any obstruction is present. 2. The gastric Lap-Band appears intact and is in good position.
[2017-01-29 22:54] VITALS: BP 122/80
[2017-01-30 06:47] VITALS: BP 118/62
--- NOTE | 2017-01-30 08:41 | PN- Bariatrics ---
Subjective Subjective: Reports abdominal "bloating" is better than yesterday after having gastrograffin and multiple loose bms following this "too many to count". Passing a lot of flatus. Currently npo awaiting egd. Reports left sided pain persists, better with toradol staggered with dilaudid. Voiding well. Walking without difficulty. No dizziness. No shortness of breath. No chest pains. Objective Vital Signs and I&Os Vital Signs Date Time Temp Pulse Resp B/P Pulse O2 O2 Flow FiO2 Ox Delivery Rate 01/30 0647 97.4 93 20 118/62 96 Room Air 01/29 2254 98.4 99 19 122/80 99 Room Air 01/29 1357 98.6 100 18 112/70 94 Room Air Intake & Output 01/30 1600 01/30 0800 01/30 0000 01/29 1600 01/29 0800 01/29 0000 Intake Total 800 2000 740 100 500 Output Total Balance 800 2000 740 100 500 Intake, IV 800 500 140 Intake, Oral 1500 600 100 500 Number 5 0 Bowel Movements Physical Exam: General - alert & oriented x 3. comfortable. no acute distress. Lungs - clear bilaterally. no w/r/r. Cardiac - s1s2. reg. Abdomen - softly distended, improved since yesterday. bowel sounds appreciated. persistent left sided tenderness. Lap band port site nontender. Extremities - warm bilaterally. no c/c/e. calves soft and nontender b/l. Assessment/Plan Assessment/Plan This 51-year-old female, who is 7 years s/p lap band placement and 5 years s/p lap band revision, presents with acute abdominal pain r/o lap band erosion currently npo awaiting egd by improved abdominal distension s/p 2 bottles gastrograffin, multiple bms f/u labs f/u egd ?continue iv unasyn for possible intra-abdominal process hep sc - dvt ppx protonix - gi ppx oob/ambulation will d/w Core Measures/Miscellaneous Venous Thromboembolism VTE Risk Factors: Age > 40 VTE Contraindications: No Contraindications VTE Diagnosis: No VTE Type: NONE VTE Confirmed by (Test): NONE Beta Obie Is Beta Obie a Home Med? No Antibiotics Is Patient on Antibiotics? Yes If Yes: infection
--- NOTE | 2017-01-30 12:35 | Proc Note Endoscopy ---
Endoscopy Procedure Medical History: unchanged (see meditech consult) Mental Status: alert/oriented Heart/Lung Eval Prior to Sedation: within normal limits Candidate for Sedation? Yes Procedure Date: 01/30/17 Procedure Type: EGD Network Control Operator: Erik Bright MD ASA Classification: II Indications: abdominal pain in a pt with a lab band; egd being done to rule out lap band erosion. Instrument: diagnostic gastroscope Meds Received: MAC Patient's Tolerance: good Complications: none Extent Reached: second part of duodenum Procedure: After getting written informed consent the patient was placed in the left lateral decubitus position with pulse oximetry, cardiac monitoring, and supplemental oxygen given. A bite block was inserted and IV sedation was given until the desired effect was achieved. A high definition upper Olympus endoscope was then inserted into the mouth and advanced to the second portion of the duodenum with little difficulty. Retroflexed views and photodocumentation was obtained. Findings: Esophagus: The esophageal mucosa was grossly normal appearance and there was a normal-appearing Z line at 39 cm from this incisors. Stomach: Retroflexed views revealed that the lap band had eroded through the gastric mucosa and was visible in the fundus. The remainder of the gastric mucosa was grossly normal in appearance. Distention and peristalsis of the stomach appeared normal. Duodenum: The duodenal bulb, sweep, and folds were grossly normal in appearance. Impression: 1. Lap band eroding through gastric mucosa. Recommendations: 1. Removal/revision of her LAP-BAND as per bariatric surgery. CC: GINGER KENYON,JAZMIN Joshua; ZAINAB KENYON,BLAYNE Gr
[2017-01-30 15:09] VITALS: BP 120/80
--- NOTE | 2017-01-30 16:32 | PN- General Surgery ---
Surgical Brief Attending Note Brief Attending Note: Patient was admitted to my surgical service with new onset abdominal pain and low-grade fever and was hemodynamically stable. There was some concern for erosion of a lap band because of some mild inflammatory changes seen on CAT scan. An upper GI was performed which did not confirm an erosion. The patient remained to have abdominal pain without peritoneal signs and hemodynamically stable. She does not tolerate food well or oral medication. She has had substantial sustained weight loss since undergoing a lap [place] [address] Carlos Gillespie. In 2012 she underwent a revision of her lap band at [facility] for slip again performed by Dr. Richardson. Today we had Dr. Bright perform an upper endoscopy for us which does confirm an erosion. The patient is extremely fearful of having her band removed and gaining weight. She is adamant that she would like to have him revisional surgery so that she does not regain weight. Seeing that she had lost in sustained weight I do feel it is reasonable to convert her to a bypass or possibly a sleeve although this cannot be determined which procedure may be better until she is operated upon and the band removed because of the erosion. The patient is agreeable and willing to undergo removal of the lap band is long is she knows that a revisional procedure to help her maintain weight loss will be performed. I am agreeable to this although I have discussed with her given her BMI of 25 that her insurance may not cover a revision. In the meantime she will have to wait until she heals at least 6 weeks after removing the lap band before I would consider any type revisional procedure. Plan at this time after long discussion with the patient today is 2 operated tomorrow and remove the band and port patient consents to the procedure
[2017-01-30 22:00] VITALS: BP 118/70
[2017-01-31 07:16] VITALS: BP 90/72
--- NOTE | 2017-01-31 13:44 | Operative Report ---
Operative/Inv Procedure Report Surgery Date: 01/31/17 Name of Procedure: Laparoscopic removal of Lap Band and EZ port Pre-Operative Diagnosis: erosion of band into stomach Post-Operative Diagnosis: same Estimated Blood Loss: less than 50ml Surgeon/Truss Builder: ZAINAB KENYON,BLAYNE Hanson MD Anesthesia: general endotracheal tube, block IV Fluids: LR Implants: none Drains: #10 LOLA x 1 Specimens: band and port Complications: none Condition: stable Operative Indication: pt with Lap band erosion as seen and documented on endoscopy by Dr Bright Operative/Procedure Note Note: After long discussion with the patient regarding risks versus benefits and possible complications removing her adjustable gastric band the patient consented to surgery. Patient was taken to the operating room placed on the operating room table in supine position Venodyne stockings were applied she underwent a general endotracheal anesthetic the abdomen was prepped and draped in normal sterile fashion after anesthesia performed a Konrad block. We entered the abdominal cavity through 1 cm left upper quadrant incision using a completely an Optiview trocar and a 0 laparoscope which is insufflated the abdomen with 14 mm CO2 pressure we placed 3 additional 5 mm trochars 2 in the subcostal margin 1 adjacent to the port site in the right upper quadrant and one in the right midabdomen as well. There is some evidence upon entry of purulence in the left gutter adjacent to the patient's discomfort up in and the left lobe of the liver and omentum was scarred laterally. We then placed a Rosa Maria liver retractor and elevated the liver. We had to take some adhesions off of the omentum in the left lateral portion of the liver. We could see the tubing of the lap band the dissected the fibrinous rind around the band to we could see the buckle of the lap band port. We then unbuckled the band we cut through the balloon and band and then pulled it out around the stomach in 2 pieces. We cut the tubing and placed a 5 mm camera into the 10 mm port pulled out the band and a portion of the tubing the remainder of it we would remove and we open the port site and removed the port and the rest of the band. The patient had an APS band with the easy lock port. We did remove all components. There was obviously an erosion is seen by upper endoscopy surprisingly the band balloon was not stained with bile or gastric acid. Little bit of scar tissue after removing the band was sewn laparoscopically using 2-0 Vicryl suture to cover the opening were reviewed. The band from around the stomach to help avoid any leakage of gastric contents. We inserted the LOLA drain into the abdominal cavity placing it up over the splenic gutter bringing the tubing out through one of the 5 mm port sites and sew it in with a 3-0 nylon suture. We then removed all trochars Rosa Maria liver retractor we opened up the skin above the port in the right upper quadrant dissected out the easy port and removed all components and sutures. We irrigated the wound and closed all skin incisions with 4-0 Monocryl subcuticular stitches Steri-Strips and dry sterile dressings were placed. The patient tolerated the procedure without complications was extubated and taken the recovery room in stable condition Findings: erosion of band with inflammatory changes along left lobe of liver and omentum with minimal purulent material in the left gutter consistent with pts pain Discharge Disposition: PACU CC: TRUE BRIGHT MD
[2017-01-31 17:17] VITALS: BP 100/70
--- NOTE | 2017-01-31 17:44 | PN- General Surgery ---
Subjective Subjective: poc s/p lap removal of lap band and repair of esophageal erosion no major complaints at this time josefina thompson, sob, has some mild nausea ambulating in room with Objective Vital Signs and I&Os Vital Signs Date Time Temp Pulse Resp B/P Pulse O2 O2 Flow FiO2 Ox Delivery Rate 01/31 1717 97.8 79 16 100/70 97 01/31 0716 97.6 85 20 90/72 98 Room Air 01/30 2200 98.4 89 16 118/70 100 Room Air Intake & Output 01/31 1600 01/31 0800 01/31 0000 01/30 1600 01/30 0800 01/30 0000 Intake Total 0 800 1200 489 738 8012 Output Total Balance 0 800 1200 650 316 5691 Intake, IV 800 800 800 800 500 Intake, Oral 0 400 1500 Patient 145 lb Weight Physical Exam: cv: rrr lungs: clear abd: softly distended some blood drainage on drsgs serous jenifer drainage ext: warm, distal cms intact Assessment/Plan Assessment/Plan surgical stable plan strict npo tonight hep sq iv ppi titrate pain meds oob/ambulate Core Measures/Miscellaneous Venous Thromboembolism VTE Risk Factors: Age > 40 VTE Contraindications: No Contraindications VTE Diagnosis: No VTE Type: NONE VTE Confirmed by (Test): NONE Beta Obie Is Beta Obie a Home Med? No Antibiotics Is Patient on Antibiotics? Yes If Yes: infection
[2017-01-31 21:46] VITALS: BP 110/70
[2017-02-01 06:57] VITALS: BP 108/80
[2017-02-01 08:06] LABS: ABSOLUTE BASOPHIL COUNT 0 /CUMM (0.0-0.2); ABSOLUTE EOSINOPHIL COUNT 0 /CUMM (0.0-0.7); ABSOLUTE LYMPH COUNT 0.9 /CUMM (1.2-3.4); ABSOLUTE MONOCYTE COUNT 0.5 /CUMM (0.10-0.60); BASOPHIL % 0.3 % (0.0-2.0); EOSINOPHIL % 0.1 % (0-5); HEMATOCRIT 30.9 % (37-47); MEAN CORPUSCULAR HGB 27.1 PG (27.0-31.0); MEAN CORPUSCULAR HGB CONC 32.9 G/DL (33.0-37.0); MEAN CORPUSCULAR VOLUME 82.4 FL (81.0-99.0); MEAN PLATELET VOLUME 8.6 FL (7.4-10.4); PLATELET COUNT 294 /CUMM (130-400); RED BLOOD CELL CT 3.74 /CUMM (4.20-5.40); WHITE BLOOD CELL COUNT 11.5 /CUMM (4.8-10.8)
[2017-02-01 08:52] LABS: GRANULOCYTE % 86.8 % (42.2-75.2)
--- NOTE | 2017-02-01 09:47 | PN- Bariatrics ---
See Addendum Subjective Subjective: Pt is now POD #1 s/p band removal. She admits to minor incisional pain and L shoulder pain, but reports adequate relief with pain meds. She remains npo without nausea. She reports decreased bloating. Passing flatus. No BM. Voiding well and ambulating frequently. Denies CARPIO, dizziness, CP, SOB. Objective Vital Signs and I&Os Vital Signs Date Time Temp Pulse Resp B/P Pulse O2 O2 Flow FiO2 Ox Delivery Rate 02/01 0657 98.7 97 20 108/80 97 Room Air 01/31 2146 97.9 73 20 110/70 96 01/31 1717 97.8 79 16 100/70 97 Intake & Output 02/01 1600 02/01 0800 02/01 0000 01/31 1600 01/31 0800 01/31 0000 Intake Total 850 800 0 800 1200 Output Total 1450 250 Balance -600 550 0 800 1200 Intake, IV 850 800 800 800 Intake, Oral 0 0 400 Output, 50 Drainage Output, Urine 1400 250 Physical Exam: Gen: Pt is awake and alert. NAD. Cardiac: Regular. Pulmonary: Lungs are CTA bilaterally. No wheezes, rales or rhonchi noted. Abdomen: Still moderately distended. Dressings are clean and intact. There is serosanginous output from the LOLA drain. 50cc overnight. +incisional tenderness, as expected. Hypoactive BS are heard. Ext: no LE edema or calf tenderness noted bilaterally. Results Last 48 Hours of Labs: Laboratory Tests 02/01 0625 Chemistry Sodium (137 - 145 mmol/L) 139 Potassium (3.5 - 5.1 mmol/L) 4.3 Chloride (98 - 107 mmol/L) 104 Carbon Dioxide (22 - 30 mmol/L) 25 Anion Gap (5 - 16) 11 BUN (7 - 17 mg/dL) 5 L Creatinine (0.5 - 1.0 mg/dL) 0.6 Estimated GFR (>60 ml/min) > 60 BUN/Creatinine Ratio (7 - 25 %) 8.3 Hematology CBC w Diff NO MAN DIFF REQ WBC (4.8 - 10.8 /CUMM) 11.5 H RBC (4.20 - 5.40 /CUMM) 3.74 L Hgb (12.0 - 16.0 G/DL) 10.2 L Hct (37 - 47 %) 30.9 L MCV (81.0 - 99.0 FL) 82.4 MCH (27.0 - 31.0 PG) 27.1 RDW (11.5 - 14.5 %) 14.0 Plt Count (130 - 400 /CUMM) 294 MPV (7.4 - 10.4 FL) 8.6 Gran % (42.2 - 75.2 %) 86.8 H Lymphocytes % (20.5 - 51.1 %) 8.0 L Monocytes % (1.7 - 9.3 %) 4.8 Eosinophils % (0 - 5 %) 0.1 Basophils % (0.0 - 2.0 %) 0.3 Absolute Granulocytes (1.4 - 6.5 /CUMM) 10.0 H Absolute Lymphocytes (1.2 - 3.4 /CUMM) 0.9 L Absolute Monocytes (0.10 - 0.60 /CUMM) 0.5 Absolute Eosinophils (0.0 - 0.7 /CUMM) 0 Absolute Basophils (0.0 - 0.2 /CUMM) 0 PUBS MCHC (33.0 - 37.0 G/DL) 32.9 L Assessment/Plan Assessment/Plan Is a 51-year-old female with history of a lap band, which was complicated by erosion. She is now postoperative day #1 status post removal of lap band. One LOLA drain remains in place. She started to have bowel function. Plan: -Consider diet advancement to clear liquids. If so, will Hep-Lock IV fluids. -Pain control with IV Dilaudid and Toradol. We will convert to oral meds when tolerating po. -Subcutaneous heparin and Alps for DVT prophylaxis. Patient is ambulatory as well. -Continue IV antibiotics for infected LAP-BAND. -Repeat electrolytes with magnesium in the morning. -Will discuss with them day. Core Measures/Miscellaneous Venous Thromboembolism VTE Risk Factors: Age > 40 VTE Contraindications: No Contraindications VTE Diagnosis: No VTE Type: NONE VTE Confirmed by (Test): NONE Beta Obie Is Beta Obie a Home Med? No Antibiotics Is Patient on Antibiotics? Yes If Yes: infection
[2017-02-01 14:02] VITALS: BP 118/80
--- NOTE | 2017-02-01 23:42 | Surgical Discharge Summary ---
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 Home Who Do You Live With? Spouse What is Your Primary Language? Malay ETOH Use: occasional use Review of Systems: See H&P Hospital Course Course Attending Physician: ZAINAB KENYON,BLAYNE Gr Primary Care Physician: JAZMIN MILES MD Hospital Course: Patient is a 51-year-old female with a history of a LAP-BAND ([address] Gillespie), complicated by revision for repositioning 2 years postop, who presented to the emergency department on 01/27/2017 with acute onset of severe epigastric and left upper quadrant abdominal pain. CT findings revealed some inflammatory changes around the LAP-BAND, suspicious for infection and possible erosion. Upper GI study on 01/28/2017 revealed delayed esophageal emptying, but was negative for leak. Repeat x-ray on 01/29/2017 revealed passage of the contrast down to the rectum and no evidence of obstruction. On 01/30/2017, EGD was performed by Dr. Bright, who concluded that the band had in fact eroded. On 01/31/2017, patient underwent laparoscopic removal of the LAP-BAND. She tolerated the procedure well and was advanced to a stage I bariatric diet on postoperative day #1. She was continued on unasyn through her hospitalization for the band erosion and subsequent intra-abdominal infection, confirmed during surgery. She was advanced to a stage 2 bariatric diet (fulls), which she was tolerating prior to her discharge to home. Her LOLA drain was closely watched during her diet advancement, and her pain is currently controlled with dilaudid pills as needed. She plans on following up with as an outpatient for incision checks and to plan a future revisional bariatric surgery. Complications: None Allergies: Coded Allergies: procaine (From NOVOCAIN) (Severe, RAPID HEART RATE 01/27/17) Penicillins (Intermediate, HIVES 01/27/17) bee venom protein (honey bee) (Intermediate, WELTS 01/27/17) codeine (Intermediate, N/V 01/27/17) latex (Intermediate, HIVES 01/27/17) oxycodone (From PERCOCET) (Intermediate, N/V 01/27/17) Significant Procedures: 01/30/[address] Bright 01/31/2017 laparoscopic removal of the lap band by Dr. Carranza Disposition Summary Disposition Principal Diagnosis: Lap band erosion Additional Diagnosis: None Discharge Disposition: home or self care Discharge Instructions General Discharge Information Code Status: Full Code Patient's Diet: stage 2 bariatric diet (fulls) Patient's Activity: No strenuous activity or heavy lifting, pushing, or pulling. Follow-Up Instructions/Appts: You may shower as desired. Leave Steri-Strips in place until they fall off on their own. Follow-up with Dr. Carranza in 1-2 weeks. Please notify M.D. if any of the following symptoms occur: Fever greater than 101, redness or drainage at incision sites, emesis, chest pain, shortness of breath, or increased abdominal pain. Medications at Discharge Discharge Medications: Stop taking the following medications: Caffeine (Caffeine) 200 MG TABLET ORAL DAILY Continue taking these medications: Estradiol (Vivelle-Dot) 0.075 MG/24 HOUR PATCH.TDSW 1 PATCH On the skin 2 times per week Qty = 24 Multivitamin (Multi-Day Vitamins) 1 EACH TABLET 2 Tablet ORAL DAILY Calcium (Elemental-Fr Calcarb) (Tums Ultra) (Unknown Strength) TAB.CHEW 2 Tablet ORAL DAILY Krill Oil (Krill Oil) (Unknown Strength) CAPSULE Unknown Dose ORAL DAILY Calcium/Magnesium/Zinc (Nofmooa-Xunaepdjs-Opzs Tab) 1 EACH TABLET 1 Tablet ORAL DAILY Lactobacillus Acidophilus (Probiotic) 10 BILLION CELL CAPSULE 1 Capsule ORAL DAILY Magnesium Oxide (Magnesium) 500 MG CAPSULE 1 Capsule ORAL DAILY Biotin (Biotin) 5,000 MCG TAB.RAPDIS 1 Tablet ORAL DAILY Lutein (Lutein) 40 MG CAPSULE 1 Capsule ORAL DAILY KELP (KELP) 1 EACH TABLET 1 Tablet ORAL DAILY Loratadine/Pseudoephedrine (Claritin-D 24 Hour Tablet) 10 MG-240 MG TAB.ER.24H 1 Tablet ORAL DAILY Omeprazole (Omeprazole) 40 MG CAPSULE.DR 1 Capsule ORAL DAILY Qty = 30 Instructions: take everyday This prescription has been renewed Start taking the following new medications: Hydromorphone HCl (Dilaudid) 2 MG TABLET 1-2 Tablet ORAL EVERY 4-6 HOURS NEEDED as needed for pain control Qty = 36 No Refills Polyethylene Glycol 3350 (Miralax) 17 GRAM POWD.PACK 1 Packet ORAL DAILY as needed for CONSTIPATION Qty = 2 No Refills Instructions: dissolve in water Amoxicillin/Potassium Clav (Augmentin 875-125 Tablet) 875 MG-125 MG TABLET 1 Tablet ORAL TWICE DAILY Qty = 10 No Refills Instructions: take with food Copies To: GINGER KENYON,JAZMIN Joshua; HUANG KENYON,BASILIO Mcclelland
--- NOTE | 2017-02-01 23:47 | Patient Discharge Instructions ---
Discharge Instructions General Discharge Information You were seen/treated for: Lap band erosion You had these procedures: Upper endoscopy on 01/30/2017, followed by laparoscopic removal of lap band on 01/31/2017 Watch for these problems: Fever greater than 101, nausea, emesis, chest pain, shortness of breath, increased abdominal pain No bath, but you may shower: Yes Other wound care: May shower as desired. Leave Steri-Strips in place until they fall off on the round. Diet Continue normal diet: Yes Recommended Diet: Bariatric Additional DIET Information: stage 2 bariatric diet (fulls) as tolerated Activity Full Activity/No Limits: No Activity Self Limited: Yes Pounds, do NOT lift more than: 5 Other activity limits: No strenuous activity or heavy lifting, pushing, or pulling. No driving while using narcotics. Please follow-up with your doctor in 1-2 weeks. Acute Coronary Syndrome Inclusion Criteria At DC or during hospital stay patient has or had the following: ACS DIAGNOSIS No Discharge Core Measures Meds if any: Prescribed or Continued at Discharge Meds if any: NOT Prescribed or Continued at Discharge Congestive Heart Failure Inclusion Criteria At DC or during hospital stay patient has or had the following: CHF DIAGNOSIS No Discharge Core Measures Meds if any: Prescribed or Continued at Discharge Meds if any: NOT Prescribed or Continued at Discharge Cerebrovascular accident Inclusion Criteria At DC or during hospital stay patient has or had the following: CVA/TIA Diagnosis No Discharge Core Measures Meds if any: Prescribed or Continued at Discharge Meds if any: NOT Prescribed or Continued at Discharge Venous thromboembolism Inclusion Criteria VTE Diagnosis No VTE Type NONE VTE Confirmed by (Test) NONE Discharge Core Measures - Per Current guidelines, there needs to be overlap - treatment for the first 5 days of Warfarin therapy. - If discharged on Warfarin prior to 5 days of - overlap therapy, the patient will need to be - assessed for post discharge needs including - *Post discharge parental anticoagulation - *Warfarin and/or parental anticoagulation education - *Follow up date to check INR post discharge At least 5 days overlap therapy as Inpatient No Meds if any: Prescribed or Continued at Discharge Note: Overlap Therapy is Warfarin and Anticoagulant Meds if any: NOT Prescribed or Continued at Discharge
[2017-02-02 06:59] VITALS: BP 112/64
--- NOTE | 2017-02-02 08:02 | PN- Bariatrics ---
See Addendum Subjective Subjective: Reports pain around drain site. Improved left sided pain. Currently npo awaiting upper gi study. Still feels bloated. Not passing much gas. No bm recently. Denies nausea. Voiding well. No dizziness. No shortness of breath. No chest pains. Feels unprepared for discharge home with concerns surrounding caring for her son with profound autism, who is nonverbal. Objective Vital Signs and I&Os Vital Signs Date Time Temp Pulse Resp B/P Pulse O2 O2 Flow FiO2 Ox Delivery Rate 02/02 0659 98.1 79 20 112/64 97 Room Air 02/01 1402 98.2 76 20 118/80 98 Room Air 02/01 1135 Room Air Room Air Intake & Output 02/02 0800 02/02 0000 02/01 1600 02/01 0800 02/01 0000 01/31 1600 Intake Total 600 800 850 800 0 Output Total 10 1085 1450 250 Balance 590 -285 -600 550 0 Intake, IV 600 800 850 800 Intake, Oral 0 0 Output, 10 85 50 Drainage Output, Urine 1000 1400 250 Physical Exam: General - alert & oriented x 3. comfortable. no acute distress. Lungs - clear bilaterally. Cardiac - s1s2. reg. Abdomen - soft. LOLA dressing saturated with serosang drainage. Drain stripped. no bowel sounds appreciated. softly distended. incisional tenderness, as expected. Extremities - warm bilaterally. no c/c/e. calves soft and nontender b/l. Assessment/Plan Assessment/Plan This 51-year-old female with history of a lap band, found to have a band erosion by egd (01/30) is now POD#2 s/p removal of lap band, LOLA drain currently npo, awaiting upper gi study toradol / dilaudid prn pain control. she reports agreeable to trying oral dilaudid after ugi study miralax / mom prn constipation oob/ambulation encouraged abdominal binder as desired LOLA drain stripped and dressing changed f/u labs and upper gi study likely restart stage 1 bariatric diet with ensure following ugi study pending no leak ?continue iv unasyn, ?duration case management to assist with home services will d/w Core Measures/Miscellaneous Venous Thromboembolism VTE Risk Factors: Age > 40 VTE Contraindications: No Contraindications VTE Diagnosis: No VTE Type: NONE VTE Confirmed by (Test): NONE Beta Obie Is Beta Obie a Home Med? No Antibiotics Is Patient on Antibiotics? Yes If Yes: infection
--- NOTE | 2017-02-02 10:46 | RADIOLOGY REPORT ---
EXAMINATION: FLUOROSCOPY UPPER GI WITH GASTROGRAFIN CLINICAL INFORMATION: Status post lap band removal 01/31/2017 for erosion. Evaluate for leak. COMPARISON: Upper GI exam dated 01/28/2017. CT scan of the abdomen and pelvis dated 01/27/2017. TECHNIQUE: A limited Gastrografin upper GI study was performed using 30 ml of Gastroview with the patient in the semiupright position. Multiple spot films were acquired. Preliminary antique furniture reproducer view of the abdomen was also performed. FINDINGS: The preliminary antique furniture reproducer view of the abdomen performed on 2 images demonstrate a drain and postsurgical sutures in the epigastric region. There is mild distention of the colon with the previously administered oral contrast. Relative paucity of gas in the small bowel is noted. Of note, there is obscuration of the left hemidiaphragm with increased opacity seen in the left lung base, suggestive of a small effusion or left basilar atelectasis/consolidation. Esophageal distensibility and motility is grossly unremarkable. The GE junction is located below the level of the diaphragm and no GE reflux seen. The stomach is normal with no abnormal contrast leak seen. No abnormal gastric fold thickening is seen, and no ulceration is noted. There is prompt emptying of contrast into the duodenum, which is unremarkable in appearance. FLUOROSCOPY TIME: 1.14 minutes. IMPRESSION: No evidence of contrast leak status post gastric lap band removal.
[2017-02-02 14:37] VITALS: BP 140/80
[2017-02-02 22:57] VITALS: BP 140/90
[2017-02-03 06:57] VITALS: BP 140/84
--- NOTE | 2017-02-03 07:53 | PN- General Surgery ---
Surgical Brief Attending Note Brief Attending Note: pt looks well this am, the left side pain has subsided but still has some distension and vague diffuse pain but is soft and no peritoneal signs. The LOLA drain output is low and clear and not consistent with any infection or leak she tolerated clear liquids well yesterday May advance to full liquids now and if does ok than will plan to d/c the LOLA tomorrow with anticipation for discharge Thursday or . Continue IV antibiotic for now
[2017-02-03 08:29] LABS: ABSOLUTE BASOPHIL COUNT 0 /CUMM (0.0-0.2); ABSOLUTE EOSINOPHIL COUNT 0.4 /CUMM (0.0-0.7); ABSOLUTE GRANULOCYTE CT 5.9 /CUMM (1.4-6.5); ABSOLUTE LYMPH COUNT 1.2 /CUMM (1.2-3.4); ABSOLUTE MONOCYTE COUNT 0.4 /CUMM (0.10-0.60); BASOPHIL % 0.3 % (0.0-2.0); EOSINOPHIL % 4.7 % (0-5); GRANULOCYTE % 75.1 % (42.2-75.2); HEMATOCRIT 28.1 % (37-47); MEAN CORPUSCULAR HGB 26.9 PG (27.0-31.0); MEAN CORPUSCULAR HGB CONC 32.9 G/DL (33.0-37.0); MEAN CORPUSCULAR VOLUME 81.8 FL (81.0-99.0); MEAN PLATELET VOLUME 7.7 FL (7.4-10.4); PLATELET COUNT 278 /CUMM (130-400); RBC DISTRIBUTION WIDTH 14.4 % (11.5-14.5); RED BLOOD CELL CT 3.43 /CUMM (4.20-5.40); WHITE BLOOD CELL COUNT 7.9 /CUMM (4.8-10.8)
[2017-02-03 14:04] VITALS: BP 120/55
[2017-02-03 23:26] VITALS: BP 134/88
[2017-02-04 06:44] VITALS: BP 120/60
--- NOTE | 2017-02-04 08:25 | PN- Bariatrics ---
Subjective Subjective: Reports tolerating clears and fulls. No nausea. Still have some left sided abdominal pain, but mostly pain around drain site, which she reports improves with dilaudid. She feels grumbling, but hasn't been passing much gas. She is going to try miralax today. Reports walking well. No shortness of breath. No chest pains. No shortness of breath. Asking for shower chair for home. Objective Vital Signs and I&Os Vital Signs Date Time Temp Pulse Resp B/P B/P Pulse O2 O2 Flow FiO2 Mean Ox Delivery Rate 02/04 0644 98.1 64 20 120/60 97 Room Air 02/03 2326 99.3 109 20 134/88 96 Room Air 02/03 1404 98.3 62 20 120/55 96 Intake & Output 02/04 1600 02/04 0800 02/04 0000 02/03 1600 02/03 0800 02/03 0000 Intake Total 440 500 500 600 400 Output Total 20 5 5 10 Balance 440 480 495 595 390 Intake, IV 240 600 Intake, Oral 200 500 500 400 Number 0 Bowel Movements Output, 20 5 5 10 Drainage Physical Exam: General - alert & oriented x 3. comfortable. no acute distress. Lungs - clear bilaterally. no w/r/r. Cardiac - s1s2. reg. Abdomen - softly distended. active bowel sounds. LOLA drain with scant serous drainage. steri strips intact. expected yessi-incisional tenderness. Extremities - warm bilaterally. no c/c/e. calves soft and nontender b/l. Assessment/Plan Assessment/Plan This 51-year-old female with history of a lap band, found to have a band erosion by egd (01/30) is now POD#4 s/p removal of lap band tolerating stage 2 diet pain controlled LOLA drain removed protonix daily - gi ppx hep sc - dvt ppx oob/ambulating iv unasyn continue for intra-abdominal process related to lap band erosion. ? duration d/c planning will d/w Core Measures/Miscellaneous Venous Thromboembolism VTE Risk Factors: Age > 40 VTE Contraindications: No Contraindications VTE Diagnosis: No VTE Type: NONE VTE Confirmed by (Test): NONE Beta Obie Is Beta Obie a Home Med? No Antibiotics Is Patient on Antibiotics? Yes If Yes: infection
[2017-02-04] MEDS ORDERED: MIRALAX17 G1 PO (08:32)
[2017-02-04] MEDS ORDERED: DILAUDID2 M1 PO (08:32)
[2017-02-04] MEDS ORDERED: OMEPRAZOLE40 M1 PO (13:25)
[2017-02-04] MEDS ORDERED: AUGMENTIN 875-1 EACH PO (13:25)
[2017-02-04 14:30] VITALS: BP 125/87
[2017-02-04 23:25] VITALS: BP 136/80
[2017-02-05 06:33] VITALS: BP 126/66
[2017-02-05] MEDS ORDERED: DILAUDID2 M1 PO (08:03)
--- NOTE | 2017-02-05 08:24 | PN- Bariatrics ---
Subjective Subjective: Pt seen and examined by Dr Carranza Objective Vital Signs and I&Os Vital Signs Date Time Temp Pulse Resp B/P B/P Pulse O2 O2 Flow FiO2 Mean Ox Delivery Rate 02/05 0633 98.4 89 20 126/66 98 Room Air 02/04 2325 98.8 96 20 136/80 96 Room Air 02/04 1430 98.4 88 20 125/87 98 Intake & Output 02/05 1600 02/05 0800 02/05 0000 02/04 1600 02/04 0800 02/04 0000 Intake Total 450 600 440 500 Output Total 20 Balance 450 600 440 480 Intake, IV 300 100 240 Intake, Oral 150 500 200 500 Number 0 Bowel Movements Output, 20 Drainage Physical Exam: Pt examined by Dr Carranza Reported General: alert and oriented without complaints this morning Lungs - clear bilaterally Abdomen - softly distended. active bowel sounds Wounds: look good Assessment/Plan Assessment/Plan his 51-year-old female with history of a lap band, found to have a band erosion by egd (01/30) is now POD#5 s/p removal of lap band Per Dr Carranza dc home on stage 2 bariatric diet dc with augmentin fu next week with Dr Carranza pain management - po dilaudid and tramadol Core Measures/Miscellaneous Venous Thromboembolism VTE Risk Factors: Age > 40 VTE Contraindications: No Contraindications VTE Diagnosis: No VTE Type: NONE VTE Confirmed by (Test): NONE Beta Obie Is Beta Obie a Home Med? No Antibiotics Is Patient on Antibiotics? Yes If Yes: infection Antibiotics Is Patient on Antibiotics? Yes If Yes: infection
[2017-02-05] MEDS ORDERED: TRAMADOL HCL50 M1 PO (08:31)
== END 2017-02-05 11:13 | DRG 222 ==
LOC: ENRESERVDT → ENRESERVTM → ERH 17:42 → ERHI 23:34 → 2NA 23:34 → ENPENDDIS 02-05 09:04 → 2NA 02-05 11:13
PROVIDERS: Nurse Practitioner; Physician Assistant; Physician Assistant Surgical; ADMIT Surgery
PROC: 0DJ08ZZ Inspection of Upper Intestinal Tract, Via Natural or Artificial Opening Endoscopic (ICD-10-PCS; 2017-01-30)
PROC: 0DP64CZ Removal of Extraluminal Device from Stomach, Percutaneous Endoscopic Approach (ICD-10-PCS; principal; 2017-01-31)
DX: K95.09 Other complications of gastric band procedure (principal); K21.9 Gastro-esophageal reflux disease without esophagitis; Y83.8 Other surgical procedures as the cause of abnormal reaction of the patient, or of later complication, without mention of misadventure at the time of the procedure; Z87.891 Personal history of nicotine dependence
CPT/HCPCS: 2NAP; ERO; 36415; 74020; 74177; 74240; 81003; 82436; 87040; 93005; 93010; 96374; 96376; J0131; J1100; J1170; J1644; J1885; J2405; J2550; J7042; J7060; S5012

== ENCOUNTER 2017-12-14 15:28 | Emergency (ER) | payer OTHER ==
[~2017-12-14] VITALS: Ht 160 cm; Wt 75.8 kg
[~2017-12-14 15:28] MED LIST changes: +AUGMENTIN 875-1 EACH PO; +BIOTIN5000 MCG PO; +CAFFEINE200 MG PO; +CALCIUM-MAGNES1 EAC5 PO; +CLARITIN-D 241 EACH PO; +DILAUDID2 M1 PO; +KELP1 EACH PO; +KRILL OIL500 MG PO; +LUTEIN40 MG PO; +MAGNESIUM500 M2 PO; +MIRALAX17 G1 PO; +MULTI-DAY VITA1 EACH PO; +OMEPRAZOLE40 M1 PO; +PROBIOTIC1 EACH PO; +TRAMADOL HCL50 M1 PO; +TUMS ULTRA400 M1 PO; +VIVELLE-DOT1 EAC4 TOP
[2017-12-14 15:55] LABS: ABSOLUTE BASOPHIL COUNT 0.1 /CUMM (0.0-0.2); ABSOLUTE EOSINOPHIL COUNT 0.5 /CUMM (0.0-0.7); ABSOLUTE GRANULOCYTE CT 6.4 /CUMM (1.4-6.5); ABSOLUTE LYMPH COUNT 2.5 /CUMM (1.2-3.4); ABSOLUTE MONOCYTE COUNT 0.5 /CUMM (0.10-0.60); BASOPHIL % 0.7 % (0.0-2.0); EOSINOPHIL % 4.7 % (0-5); GRANULOCYTE % 64.1 % (42.2-75.2); HEMATOCRIT 39.2 % (37-47); MEAN CORPUSCULAR HGB 27.8 PG (27.0-31.0); MEAN CORPUSCULAR HGB CONC 32.8 G/DL (33.0-37.0); MEAN CORPUSCULAR VOLUME 84.7 FL (81.0-99.0); MEAN PLATELET VOLUME 9.3 FL (7.4-10.4); PLATELET COUNT 214 /CUMM (130-400); RBC DISTRIBUTION WIDTH 13.6 % (11.5-14.5); RED BLOOD CELL CT 4.63 /CUMM (4.20-5.40); WHITE BLOOD CELL COUNT 9.9 /CUMM (4.8-10.8)
--- NOTE | 2017-12-14 19:25 | ED CARDIAC/CP/PALPITATIONS ---
History of Present Illness General Chief Complaint: Chest Pain Stated Complaint: SOB,CP Source: patient Exam Limitations: no limitations Vital Signs & Intake/Output Vital Signs & Intake/Output Vital Signs Date Time Temp Pulse Resp B/P B/P Pulse O2 O2 Flow FiO2 Mean Ox Delivery Rate 12/14 2037 Room Air 12/14 2030 89 18 141/89 99 Room Air 12/14 1548 98.6 90 16 126/78 100 Room Air Allergies Coded Allergies: procaine (From NOVOCAIN) (Severe, RAPID HEART RATE 01/27/17) Penicillins (Intermediate, HIVES 01/27/17) bee venom protein (honey bee) (Intermediate, WELTS 01/27/17) codeine (Intermediate, N/V 01/27/17) latex (Intermediate, HIVES 01/27/17) oxycodone (From PERCOCET) (Intermediate, N/V 01/27/17) Reconcile Medications Amoxicillin/Potassium Clav (Augmentin 875-125 Tablet) 875 MG-125 MG TABLET 1 TAB PO BID intra-abdominal infection take with food Biotin 5,000 MCG TAB.RAPDIS 1 TAB PO DAILY SUPPLEMENT (Reported) Calcium (Elemental-Fr Calcarb) (Tums Ultra) (Unknown Strength) TAB.CHEW 2 TAB PO DAILY SUPPLEMENT (Reported) Calcium/Magnesium/Zinc (Avkrxkt-Zynrqktik-Suxj Tab) 1 EACH TABLET 1 TAB PO DAILY SUPPLEMENT (Reported) Estradiol (Vivelle-Dot) 0.075 MG/24 HOUR PATCH.TDSW 1 PATCH TOP 2XW HRT ( Reported) Hydromorphone HCl (Dilaudid) 2 MG TABLET 1-2 TAB PO Q4-6 PRN PRN pain control KELP 1 EACH TABLET 1 TAB PO DAILY SUPPLEMENT (Reported) Krill Oil (Unknown Strength) CAPSULE (Unknown Dose) PO DAILY SUPPLEMENT ( Reported) Lactobacillus Acidophilus (Probiotic) 10 BILLION CELL CAPSULE 1 CAP PO DAILY PROBIOTIC (Reported) Loratadine/Pseudoephedrine (Claritin-D 24 Hour Tablet) 10 MG-240 MG TAB.ER.24H 1 TAB PO DAILY ALLERGIES (Reported) Lutein 40 MG CAPSULE 1 CAP PO DAILY SUPPLEMENT (Reported) Magnesium Oxide (Magnesium) 500 MG CAPSULE 1 CAP PO DAILY SUPPLEMENT ( Reported) Multivitamin (Multi-Day Vitamins) 1 EACH TABLET 2 TAB PO DAILY SUPPLEMENT ( Reported) Omeprazole 40 MG CAPSULE.DR 1 CAP PO DAILY GI take everyday Polyethylene Glycol 3350 (Miralax) 17 GRAM POWD.PACK 1 PAC PO DAILY PRN CONSTIPATION dissolve in water Tramadol HCl 50 MG TABLET 1 TAB PO BIDP PRN pain Triage Note: 51F WITH HX GERD AND CURRENTLY ON ESTROGEN HORMONE THERAPY PATCH, REPORTS CHEST TIGHTNESS/HEAVINESS SINCE YESTERDAY, WORSE WITH PALPATION AND RADIATES INTO BACK BETWEEN SHOULDERBLADES AND UP LEFT SIDE OF NECK. STATES "IT FEELS LIKE AN ELEPHANT IS SITTING ON MY CHEST." ENDORSES THROBBING CARPIO SINCE YESTERDAY TO ENTIRE HEAD. SOB AT REST, WORSENING IRBY BUT O2 SAT 100%. ABLE TO SPEAK IN FULL SENTENCES. REPORTS LETHARGY. Triage Nurses Notes Reviewed? yes Onset: Abrupt Duration: day(s): (3), intermittent Timing: recent history Quality/Severity: pressure, sharp Location: central Radiation: shoulders Activities at Onset: none HPI: 51-year-old female comes into the emergency room for further evaluation of central chest tightness that radiates to her shoulders bilaterally. She reports that she started a new medication this past called MYBETRIQ. She reports that she has some associated shortness of breath of this especially with exertion. The symptoms began this past Thursday about 3 days ago. She reports that she just is generally not felt well. She denies any fever chills cough over a story symptoms. Denies any other associated symptoms. Comes in for further evaluation. (Daryl Robledo) Past History Travel History Traveled to [place] past 21 day No Medical History Any Pertinent Medical History? 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 No (Daryl Robledo) Review of Systems Review of Systems Constitutional: Reports: no symptoms. EENTM: Reports: no symptoms. Respiratory: Reports: see HPI. Cardiovascular: Reports: see HPI. GI: Reports: no symptoms. Genitourinary: Reports: no symptoms. Musculoskeletal: Reports: no symptoms. Skin: Reports: no symptoms. Neurological/Psychological: Reports: no symptoms. Hematologic/Endocrine: Reports: no symptoms. Immunologic/Allergic: Reports: no symptoms. All Other Systems: Reviewed and Negative (Daryl Robledo) Physical Exam Physical Exam General Appearance: well developed/nourished, alert, awake Head: atraumatic, normal appearance Eyes: Bilateral: normal appearance, EOMI. Ears, Nose, Throat: normal ENT inspection, hearing grossly normal Neck: normal inspection Respiratory: normal breath sounds, no respiratory distress Cardiovascular: regular rate/rhythm Gastrointestinal: soft Back: normal inspection Extremities: normal inspection Neurologic/Psych: awake, alert, oriented x 3 Skin: intact, normal color Core Measures ACS in differential dx? Yes CVA/TIA Diagnosis No Sepsis Present: No Sepsis Focused Exam Completed? No (Daryl Robledo) Progress Differential Diagnosis: AMI, aortic dissection, cholecystitis, costochondritis, musculoskeletal pain, myocarditis, pancreatitis, pericarditis, pneumonia, pneumothorax, pulmonary embolism, PUD/GERD, respiratory failure, rib fracture, sepsis, unstable angina Plan of Care: Orders Procedure Date/time Status TROPONIN LEVEL 12/14 1930 Complete EKG 12/14 1930 Active TROPONIN LEVEL 12/14 1545 Complete D-DIMER 12/14 1545 Complete COMPREHENSIVE METABOLIC PANEL 12/14 1545 Complete CBC WITHOUT DIFFERENTIAL 12/14 1545 Complete EKG 12/14 1529 Active Laboratory Tests 12/14/17 1923: Troponin I < 0.01 12/14/17 1546: Anion Gap 13, Estimated GFR > 60, BUN/Creatinine Ratio 14.4, Glucose 105 H, Calcium 9.8, Total Bilirubin 0.3, AST 19, ALT 28, Alkaline Phosphatase 66, Troponin I < 0.01, Total Protein 7.5, Albumin 4.7, Globulin 2.8, Albumin/ Globulin Ratio 1.7, D-Dimer High Sensitivty < 200, CBC w Diff NO MAN DIFF REQ, RBC 4.63, MCV 84.7, MCH 27.8, MCHC 32.8 L, RDW 13.6, MPV 9.3, Gran % 64.1, Lymphocytes % 25.7, Monocytes % 4.8, Eosinophils % 4.7, Basophils % 0.7, Absolute Granulocytes 6.4, Absolute Lymphocytes 2.5, Absolute Monocytes 0.5, Absolute Eosinophils 0.5, Absolute Basophils 0.1 12/14/17 1545: Urine Test Cancelled Diagnostic Imaging: Viewed by Me: Radiology Read. Discussed w/RAD: Radiology Read. Radiology Impression: PATIENT: ALEXYS BORJAS PRESENT AGE: 51 PATIENT ACCOUNT NO: [id number] : 65 LOCATION: [facility] ORDERING PHYSICIAN: Daryl VELEZ SERVICE DATE: 12/14/17 EXAM TYPE : RAD - XRY-CHEST XRAY, TWO VIEWS EXAMINATION: XR CHEST CLINICAL INFORMATION: Chest pain and pressure. COMPARISON: No relevant prior imaging. TECHNIQUE: 2 views of the chest were obtained. FINDINGS: Lungs are clear and well expanded. No focal consolidative disease , pleural effusion, or pneumothorax. The cardiac silhouette and upper mediastinal contours are normal. No acute osseous finding. IMPRESSION: Normal chest radiograph. No consolidative disease or effusion. DICTATED BY: Masoud Landers MD DATE/TIME DICTATED:12/14/172109 [employer] BUCKLE MAKER:MAGGIE DATE/TIME TRANSCRIBED:12/14/172109 CONFIDENTIAL, DO NOT COPY WITHOUT APPROPRIATE AUTHORIZATION. <Electronically signed in Other Vendor System> SIGNED BY: Masoud Landers MD 12/14/172113 Initial ED EKG: normal sinus rhythm, rate (88) Repeat EKG: unchanged Comments: 12/14/2017 9:25:20 PM Patient clinically looks well. Patient is in no apparent distress. Patient is nontoxic-appearing. Patient is resting comfortably in room. 2 normal troponins. Negative d-dimer. Unchanged EKG. Recommended follow-up with chicken fancier as outpatient. Case discussed with Dr. Stovall. She understands and agrees with plan of care. (Tres VELEZ,Daryl) Departure Departure Disposition: HOME OR SELF CARE Condition: Stable Clinical Impression Primary Impression: Atypical chest pain Referrals: Jemal Yen MD Patient Has No Primary Care Dr (PCP/Family) Additional Instructions: Follow-up with cardiology. Speak with your [facility] doctor about discontinue medication. Return if any concerns worsening symptoms. Please go over all results of today's visit with your primary care doctor. Contact your primary care doctor to let them know you were here in the emergency room. There may be nonspecific findings which may not be related to your visit today here in the emergency room but may require further evaluation and chronic monitoring by your primary care doctor. If you had a laceration today the chance of foreign body always remains. You should follow-up with your primary care doctor for recheck in 3-5 days for a wound check. If you had an x-ray done there is a chance that a fracture could have been missed on initial read and you should follow-up with your primary care doctor for repeat x-rays if symptoms persist. If your blood pressure was elevated here in the emergency room please have rechecked by [facility] primary care doctor within the next 48. If you were prescribed a narcotic here in the emergency room or any type of controlled substances you're not allowed to drive while taking this medication or operate any type of heavy machinery. Narcotics can make you feel lightheaded dizziness nausea and can cause constipation. You may need to supervisor picking crew a stool softener. Thank you for choosing [facility] emergency room. Please return to the emergency room immediately if you have any other concerns worsening of symptoms. Departure Forms: Customer Survey General Discharge Information (Daryl Robledo) PA/MAILROOM ASSOCIATE Co-Sign Statement Statement: ED Attending supervision documentation- [] I saw and evaluated the patient. I have also reviewed all the pertinent lab results and diagnostic results. I agree with the findings and the plan of care as documented in the PA's/MAILROOM ASSOCIATE's documentation. [X] I have reviewed the ED Record and agree with the PA's/MAILROOM ASSOCIATE's documentation. [] Additions or exceptions (if any) to the PAs/MAILROOM ASSOCIATE's note and plan are summarized below: [] (Wilman KENYON,Kana Medina) Critical Care Note Critical Care Note Critical Care Time: non-applicable (Darly Robledo)
[2017-12-14 20:30] VITALS: BP 141/89
--- NOTE | 2017-12-14 21:14 | RADIOLOGY REPORT ---
EXAMINATION: XR CHEST CLINICAL INFORMATION: Chest pain and pressure. COMPARISON: No relevant prior imaging. TECHNIQUE: 2 views of the chest were obtained. FINDINGS: Lungs are clear and well expanded. No focal consolidative disease , pleural effusion, or pneumothorax. The cardiac silhouette and upper mediastinal contours are normal. No acute osseous finding. IMPRESSION: Normal chest radiograph. No consolidative disease or effusion.
== END 2017-12-14 21:26 ==
LOC: ERH 15:28
PROVIDERS: Emergency Medicine
DX: R07.89 Other chest pain (principal)
CPT/HCPCS: 71046; 81025; 93005; 93010